=== PATIENT | male | born 1970 | race Caucasian/White ===

== ENCOUNTER → 2019-06-29 06:47 | Outpatient (CLI) | payer OTHER, SELFPAY ==
--- NOTE | 2019-06-29 06:49 | DI.ECHO.S_ITS ---
[facility] +---------+ : : [address] : [place] [address] : : : : [id number] : : : : Phone: [phone]+ Echocardiogram Report + + :Name: PHI BORRERO Study Date: 06/29/2019 Height: 73 in : :[facility] Exam Location: [place] Weight: 200 lb : : Gender: Male BSA: 2.2 m2 : :: 1970 Age: 48 yrs BP: 129/79 mmHg: :Reason For Study: Palpitations/ : :Ordering Physician: Shan Altman Performed By: Jacqueline Page : + + Interpretation Summary The left ventricle is normal in size, wall thickness, and systolic function without any focal wall motion abnormalities. The ejection fraction is estimated to be 55-60%. Diastolic parameters suggest probable normal left ventricular diastolic function and normal filling pressures. The right ventricle is mildly dilated. The right ventricular systolic function is normal. Both atria are mildly dilated. There is no significant valvular heart disease. The aortic root is normal size. Procedure: A two-dimensional transthoracic echocardiogram with color flow and Doppler was performed. The study quality was technically adequate. There is no prior echocardiogram noted for this patient. The patient was in normal sinus rhythm during the exam. The heart rate ranged between 50-63 bpm during the study. Left Ventricle: The left ventricle is normal in size, wall thickness, and systolic function without any focal wall motion abnormalities. The ejection fraction is estimated to be 55-60%. Diastolic parameters suggest probable normal left ventricular diastolic function and normal filling pressures. Right Ventricle: The right ventricle is mildly dilated. The right ventricular systolic function is normal. Atria: Both atria are mildly dilated. There is no Doppler evidence for an interatrial shunt. Mitral Valve: There is a flat closure plane of the the mitral valve leaflets. There is trace mitral regurgitation. Aortic Valve: The aortic valve is trileaflet. The aortic valve opens well. No aortic regurgitation is present. Tricuspid Valve: The tricuspid valve is normal in structure and function. There is a trace or physiologic amount of tricuspid regurgitation. The right ventricular systolic pressure is estimated to be at least 13 mmHg based on an estimated right atrial pressure of 3 mm Hg. Pulmonic Valve: The pulmonic valve is not well visualized. There is trace pulmonic regurgitation. There is no significant valvular heart disease. Great Vessels: The aortic root is normal size. The ascending aorta is normal in size. The pulmonary artery is not well visualized, but is probably normal size. Inspiratory collapse cannot be assessed because of mechanical ventilation, thus CVP cannot be estimated.. Pericardium/ Pleura There is no pericardial effusion. There is no pleural effusion. MMode/2D Measurements & Calculations LVIDd: 5.2 cm LVOT diam: 2.3 cm LVIDs: 3.6 cm Ao root diam: 3.5 cm FS: 31.0 % asc Aorta Diam: 3.1 cm EPSS: 0.28 cm IVSd: 0.84 cm LVPWd: 0.77 cm LV rome. diameter/BSA (cm/m^2): 2.4 LV sys. diameter/BSA (cm/m^2): 1.7 LA A2 area: 25.8 cm2 RA long axis: 6.1 cm LA A4 area: 23.9 cm2 RA area: 22.1 cm2 LA length (vol): 6.0 cm RA vol: 68.2 ml LA vol: 87.2 ml RA : 31.7 ml/m2 LA vol index: 40.5 ml/m2 IVC diam: 1.7 cm RVD1 (basal): 5.1 cm RVD2 (mid): 4.4 cm TAPSE: 2.1 cm Doppler Measurements & Calculations Ao V2 max: 96.9 cm/sec LVOT Max Antoine: 90.8 cm/sec Ao V2 mean: 67.8 cm/sec LV V1 max P.3 mmHg Ao max P.8 mmHg LV V1 VTI: 16.9 cm Ao mean P.1 mmHg NATALIE(I,D): 3.5 cm2 Ao V2 VTI: 19.5 cm NATALIE(V,D): 3.8 cm2 sev ratio: 0.87 NATALIE indexed to BSA (cm^2/m^2): 1.6 MV E max antoine: 58.2 cm/sec TR max antoine: 155.2 cm/sec MV A max antoine: 36.2 cm/sec TR max P.6 mmHg MV E/A: 1.6 PA V2 max: 56.9 cm/sec Med Peak E' Atnoine: 10.0 cm/sec PA V2 mean: 43.0 cm/sec E/E' med: 5.8 PA mean P.78 mmHg Lat Peak E' Antoine: 13.4 cm/sec PA Accel Time: 0.08 sec E/E' lat: 4.3 E/e' average: 5.1 MV dec time: 0.28 sec SV(LVOT): 68.8 ml Reading Physician:10:41 AM
== END ==
PROVIDERS: PCP Family Medicine; Referring Provider Family Medicine; Visit Provider Family Medicine
DX: R00.2 Palpitations (principal)
CPT/HCPCS: 93306

== ENCOUNTER → 2019-07-11 10:42 | Outpatient (CLI) | payer OTHER, SELFPAY ==
--- NOTE | 2019-08-03 07:58 | PM.CARDMON.1 ---
[employer] Report Referral & Results Date Patient Seen: 07/11/19 Requesting provider: Aurora Palma Indication: Palpitations Duration of monitoring (days): 14 Diary information: There were 27 patient triggered events and 7 diary entries The triggered events were associated with sinus rhythm, PVCs including ventricular bigeminy, PACs, and atrial tachycardia The diary events were associated with sinus rhythm, PVCs including ventricular bigeminy and PACs Data: Minimum heart rate identified was 43 beats per minute at 00:57 on 07/16/2019 Maximum heart rate was 190 beats per minute at 12:36 on 07/23/2019 Less than 1% of identified beats or either ventricular supraventricular ectopic in origin. This included runs of ventricular bigeminy and trigeminy. The longest episode of ventricular bigeminy was 6.1 seconds and the longest episode of ventricular trigeminy was 5.5 seconds 11 runs of SVT/atrial tachycardia were identified the fastest at a rate of 150 beats per minute and the longest lasting 18 beats at a rate of 114 beats per minute suggesting more likely an atrial tachycardia than true SVT Impression: Patient with both supraventricular ventricular ectopic depolarizations the likely appear to be symptomatic. No serious dysrhythmias identified on this study however. Clinical correlation suggested
== END ==
PROVIDERS: PCP Family Medicine; Visit Provider Family Medicine
DX: R00.2 Palpitations (principal)
CPT/HCPCS: 0296T; 0298T

== ENCOUNTER → 2019-09-11 07:44 | Outpatient (CLI) | payer OTHER, SELFPAY ==
[2019-09-11 08:27] LABS: Add Manual Diff / Slide Review NO; Basophils Absolute Auto 100 /uL (0-100); Basophils Percent Auto 0.9 % (0-2); Eosinophils Absolute Auto 100 /uL (0-450); Eosinophils Percent Auto 1.9 % (2-4); Hemoglobin 14.8 g/dL (13.5-17.5); Lymphocytes Absolute Auto 1500 /uL (1100-4500); Lymphocytes Percent Auto 22.9 % (25-40); Mean Corpuscular HGB Conc 34.4 % (30-36); Mean Corpuscular Hemoglobin 31.1 PG (26-34); Mean Corpuscular Volume 90.5 fL (80-100); Monocytes Absolute Auto 600 /uL (0-900); Neutrophils Absolute Auto 4400 /uL (1500-7000); Neutrophils Percent Auto 65.3 % (50-75); Platelet Count 209 X10^3/uL (150-400); Red Blood Cell Count 4.75 X10^6/uL (4.5-5.9); Red Cell Distribution Width 12.9 % (11.6-14.8); White Blood Cell Count 6.7 X10^3/uL (4.5-11.0)
[2019-09-11 08:53] LABS: Alanine Aminotransferase 30 IU/L (<50); Albumin 4.4 g/dL (3.5-5.0); Albumin Globulin Ratio 1.4 (1.0-2.8); Alkaline Phosphatase 80 U/L (38-126); Aspartate Aminotransferase 35 IU/L (17-59); BUN Creatinine Ratio 14.4 (6-22); Bilirubin Total 0.7 mg/dL (0.2-1.3); Blood Urea Nitrogen 13 mg/dL (9-20); Calcium 9.9 mg/dL (8.4-10.2); Carbon Dioxide 30 mmol/L (22-32); Chloride 103 mmol/L (98-107); Cholesterol 209 mg/dL (140-199); Estimated Glomerular Filt Rate > 60.0 mL/min (>60); Globulin 3.2 g/dL (1.7-4.1); Glucose 113 mg/dL (70-100); HDL Cholesterol 37 mg/dL (40-60); HEMOLYSIS < 15 (0-50); LDL Cholesterol Calculated 142 mg/dL (<100); Potassium 4.4 mmol/L (3.4-5.1); Sodium 141 mmol/L (137-145); Total Protein 7.6 g/dL (6.3-8.2); Triglycerides 148 mg/dL (35-150)
[2019-09-11 09:19] LABS: Prostate Specific Antigen Scrn 2.52 ng/mL (0.1-4.0)
[2019-09-11 09:41] LABS: TSH w/ Reflex to FT4 2.19 uIU/mL (0.47-4.68)
== END ==
PROVIDERS: Family Medicine; PCP Family Medicine; Visit Provider Family Medicine
DX: Z13.6 Encounter for screening for cardiovascular disorders (principal); Z12.5 Encounter for screening for malignant neoplasm of prostate; R00.2 Palpitations; R73.09 Other abnormal glucose
CPT/HCPCS: 36415; 80053; 80061; 83036; 84443; 85025; G0103

== ENCOUNTER → 2021-01-06 12:37 | Outpatient (CLI) | payer OTHER, SELFPAY ==
[2021-01-06] MEDS: COVID-19 VACC #1, MRNA(MOD) 100 MCG/0.5 ML VIAL IM (12:46)
== END ==
PROVIDERS: PCP Family Medicine; Visit Provider Internal Medicine
DX: Z23 Encounter for immunization (principal)
CPT/HCPCS: 0011A; 91301

== ENCOUNTER → 2021-02-04 12:33 | Outpatient (CLI) | payer OTHER, SELFPAY ==
[2021-02-04] MEDS: COVID-19 VACC #2, MRNA(MOD) 100 MCG/0.5 ML VIAL IM (12:44)
== END ==
PROVIDERS: PCP Family Medicine; Visit Provider Internal Medicine
DX: Z23 Encounter for immunization (principal)
CPT/HCPCS: 0012A; 91301

== ENCOUNTER → 2021-04-13 08:28 | Outpatient (CLI) | payer OTHER, SELFPAY ==
[2021-04-13 10:58] LABS: COVID19 -Nasal RAPID Negative (Negative)
== END ==
PROVIDERS: PCP Family Medicine; Visit Provider Student in an Organized Health Care Education/Training Program
DX: Z01.812 Encounter for preprocedural laboratory examination (principal); Z20.822 Contact with and (suspected) exposure to COVID-19
CPT/HCPCS: 87635

== ENCOUNTER → 2021-05-12 08:35 | Outpatient (CLI) | payer OTHER, SELFPAY ==
[2021-05-12 10:22] LABS: Alanine Aminotransferase 68 IU/L (<50); Albumin 4.2 g/dL (3.5-5.0); Albumin Globulin Ratio 1.2 (1.0-2.8); Alkaline Phosphatase 75 U/L (38-126); Aspartate Aminotransferase 63 IU/L (17-59); BUN Creatinine Ratio 11.8 (6-22); Bilirubin Total 0.9 mg/dL (0.2-1.3); Blood Urea Nitrogen 10 mg/dL (9-20); Calcium 9.7 mg/dL (8.4-10.2); Carbon Dioxide 29 mmol/L (22-32); Chloride 105 mmol/L (98-107); Cholesterol 233 mg/dL (140-199); Estimated Glomerular Filt Rate > 60.0 mL/min (>60); Globulin 3.4 g/dL (1.7-4.1); Glucose 104 mg/dL (70-100); HDL Cholesterol 40 mg/dL (40-60); HEMOLYSIS < 15 (0-50); LDL Cholesterol Calculated 157 mg/dL (<100); Potassium 4.4 mmol/L (3.4-5.1); Sodium 140 mmol/L (137-145); Total Protein 7.6 g/dL (6.3-8.2); Triglycerides 179 mg/dL (35-150)
[2021-05-12 10:44] LABS: Prostate Specific Antigen 2.26 ng/mL (0.10-4.00)
== END ==
PROVIDERS: PCP Family Medicine; Referring Provider Family Medicine; Visit Provider Family Medicine
DX: Z13.220 Encounter for screening for lipoid disorders (principal); Z13.1 Encounter for screening for diabetes mellitus; Z12.5 Encounter for screening for malignant neoplasm of prostate
CPT/HCPCS: 36415; 80053; 80061; 84153

== ENCOUNTER 2021-05-14 11:36 | Emergency (ER) | payer OTHER, SELFPAY ==
[2021-05-14 11:43] VITALS: BP 181/87; PULSE 77; O2SAT 97
[2021-05-14 11:54] VITALS: BP 181/87; PULSE 63; RESP 18; TEMP 36.8; O2SAT 97; BMI 27.0
[2021-05-14 12:00] VITALS: BP 165/89; PULSE 60; O2SAT 96
--- NOTE | 2021-05-14 12:28 | ED.GENADULT ---
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 (12/20/16) Chronic gingival disease (12/20/16) History of herpes genitalis (11/16/17) [place]ss[place] fibroma PFO (patent foramen ovale) TIA (transient ischemic attack) Tubular adenoma Surgical History H/O shoulder surgery H/O sinus surgery History of mandibular surgery Malrotation of intestine S/P ACL repair Family History Father Sudden S/P percutaneous transluminal angioplasty (ENVIRONMENTAL ENGINEERING TECHNICIAN) with stent placement PAD (peripheral artery disease) Family/Other Esophageal cancer Social History marital status: number of children: 2 education level: master's degree 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) Smoking Status: Former smoker alcohol intake: current substance use type: does not use Smoking Status: Former smoker alcohol intake frequency: a few times a week Substance Use Type: does not use Exam Initial Vital Signs Initial Vital Signs: Vital Signs Pulse Rate 77 05/14/21 11:43 Blood Pressure 181/87 H 05/14/21 11:43 Pulse Oximetry 97 05/14/21 11:43 Course Orders Ordered: ED Orders 05/14/21 12:01 EKG-12 Lead Stat 05/14/21 12:10 Complete Blood Count AUTO DIFF Stat Comprehensive Metabolic Panel Stat Lipase Stat Vital Signs Vital signs: Vital Signs - 8 hr 05/14/21 11:43 05/14/21 11:54 05/14/21 12:00 Temperature 98.3 F Pulse Rate 77 63 60 Respiratory Rate 18 Blood Pressure 181/87 H 181/87 H 165/89 H Pulse Oximetry 97 97 96 05/14/21 12:30 05/14/21 13:00 Temperature Pulse Rate 58 L 62 Respiratory Rate Blood Pressure 156/86 H 151/89 H Pulse Oximetry 97 97 Medical Decision Making Lab Data Result diagrams: 05/14/21 12:10 05/14/21 12:10 Labs: Lab Results 05/14/21 05/14/21 Range/Units 12:10 12:10 WBC 6.8 (4.5-11.0) X10^3/uL RBC 4.78 (4.5-5.9) X10^6/uL Hgb 14.6 (13.5-17.5) g/dL Hct 42.5 (41-53) % MCV 88.9 (80-100) fL MCH 30.6 (26-34) PG MCHC 34.4 (30-36) % RDW 13.0 (11.6-14.8) % Plt Count 196 (150-400) X10^3/uL Neut % (Auto) 64.0 (50-75) % Lymph % (Auto) 24.4 L (25-40) % [place] % (Auto) 9.4 (3-14) % Eos % (Auto) 1.3 L (2-4) % Baso % (Auto) 0.9 (0-2) % Neut # (Auto) 4300 (1492-7726) /uL Lymph # (Auto) 1700 (9385-9289) /uL [place] # (Auto) 600 (0-900) /uL Eos # (Auto) 100 (0-450) /uL Baso # (Auto) 100 (0-100) /uL Sodium 140 (137-145) mmol/L Potassium 4.0 (3.4-5.1) mmol/L Chloride 106 (98-107) mmol/L Carbon Dioxide 28 (22-32) mmol/L BUN 10 (9-20) mg/dL Creatinine 0.73 (0.66-1.25) mg/dL Estimated GFR > 60.0 (>60) mL/min BUN/Creatinine Ratio 13.7 (6-22) Glucose 89 (70-100) mg/dL Calcium 9.2 (8.4-10.2) mg/dL Total Bilirubin 0.5 (0.2-1.3) mg/dL AST 44 (17-59) IU/L ALT 53 H (<50) IU/L Alkaline Phosphatase 80 (38-126) U/L Total Protein 7.4 (6.3-8.2) g/dL Albumin 4.1 (3.5-5.0) g/dL Globulin 3.3 (1.7-4.1) g/dL Albumin/Globulin Ratio 1.2 (1.0-2.8) Lipase 51 (23-300) U/L Urine Dip Bedside Urine Glucose Negative Bedside Urine Bilirubin - Negative Bedside Urine Ketone - Negative Urine Specific [place] 1.025 Bedside Urine Occult Blood - Negative Bedside Urine pH 7.0 Bedside Urine Protein - Negative Bedside Urine Urobilinogen - Negative Bedside Urine Nitrite - Negative Bedside Urine Leukocytes - Negative Esterase Point of care testing: Urine Dip Bedside Urine Glucose Negative Bedside Urine Bilirubin - Negative Bedside Urine Ketone - Negative Urine Specific [place] 1.025 Bedside Urine Occult Blood - Negative Bedside Urine pH 7.0 Bedside Urine Protein - Negative Bedside Urine Urobilinogen - Negative Bedside Urine Nitrite - Negative Bedside Urine Leukocytes - Negative Esterase Discharge Plan Departure Prescriptions: No Action valacyclovir 1 gram tablet 1,000 mg PO QDAY Qty: 30 RF: 3 Referrals: Aurora Palma DO [Primary Care Provider] -
[2021-05-14 12:30] VITALS: BP 156/86; PULSE 58; O2SAT 97
[2021-05-14 12:30] LABS: Add Manual Diff / Slide Review NO; Basophils Absolute Auto 100 /uL (0-100); Basophils Percent Auto 0.9 % (0-2); Eosinophils Absolute Auto 100 /uL (0-450); Eosinophils Percent Auto 1.3 % (2-4); Hematocrit 42.5 % (41-53); Hemoglobin 14.6 g/dL (13.5-17.5); Lymphocytes Absolute Auto 1700 /uL (1100-4500); Lymphocytes Percent Auto 24.4 % (25-40); Mean Corpuscular HGB Conc 34.4 % (30-36); Mean Corpuscular Hemoglobin 30.6 PG (26-34); Mean Corpuscular Volume 88.9 fL (80-100); Monocytes Absolute Auto 600 /uL (0-900); Monocytes Percent Auto 9.4 % (3-14); Neutrophils Absolute Auto 4300 /uL (1500-7000); Platelet Count 196 X10^3/uL (150-400); Red Blood Cell Count 4.78 X10^6/uL (4.5-5.9); White Blood Cell Count 6.8 X10^3/uL (4.5-11.0)
[2021-05-14 12:47] LABS: Alanine Aminotransferase 53 IU/L (<50); Albumin 4.1 g/dL (3.5-5.0); Albumin Globulin Ratio 1.2 (1.0-2.8); Alkaline Phosphatase 80 U/L (38-126); Aspartate Aminotransferase 44 IU/L (17-59); BUN Creatinine Ratio 13.7 (6-22); Bilirubin Total 0.5 mg/dL (0.2-1.3); Blood Urea Nitrogen 10 mg/dL (9-20); Calcium 9.2 mg/dL (8.4-10.2); Carbon Dioxide 28 mmol/L (22-32); Chloride 106 mmol/L (98-107); Estimated Glomerular Filt Rate > 60.0 mL/min (>60); Globulin 3.3 g/dL (1.7-4.1); Glucose 89 mg/dL (70-100); HEMOLYSIS < 15 (0-50); Lipase 51 U/L (23-300); Sodium 140 mmol/L (137-145); Total Protein 7.4 g/dL (6.3-8.2)
[2021-05-14 13:00] VITALS: BP 151/89; PULSE 62; O2SAT 97
--- NOTE | 2021-05-14 13:03 | ED.GENADULT ---
HPI - General Adult General Chief complaint: Abdominal Pain Stated complaint: persistent abdominal pain Time Seen by Provider: 05/14/21 12:11 Source: patient Mode of arrival: Ambulatory History of Present Illness HPI narrative: 50-year-old male who is here for evaluation of left-sided abdominal discomfort. He states that is been there for the past couple days. Has been consistent. Not worse with touching. Not worse with eating or urinating or bowel movements. He has not had any changes in his bowel movements or urination. No rash over the area. No fevers. No vomiting. Has had abdominal surgeries in the past. Had a malrotation that was repaired 5 to 6 years ago. He stated that he does have a spider bite on his left lower back Related Data Previous Rx's Medication Instructions Recorded valacyclovir 1 gram tablet 1,000 mg PO QDAY #30 tab 03/23/21 valacyclovir 1 gram tablet 1,000 mg PO TID 7 Days #21 tab 05/14/21 Allergies Allergy/AdvReac Type Severity Reaction Status Date / Time meperidine [From DEMEROL] Allergy Intermediate hives Verified 12/07/19 15:38 Penicillins [PENICILLINS] Allergy Intermediate rash Verified 12/07/19 15:38 Review of Systems Constitutional Constitutional: Reports system reviewed and no additional complaints, except as documented Cardiovascular Cardiovascular: Reports system reviewed and no additional complaints, except as documented Respiratory Respiratory: Reports system reviewed and no additional complaints, except as documented Gastrointestinal Gastrointestinal: Reports as per HPI Genitourinary Genitourinary: Reports system reviewed and no additional complaints, except as documented Musculoskeletal Musculoskeletal: Reports system reviewed and no additional complaints, except as documented Integumentary/Breasts Skin/Breast: Reports as per HPI Neurologic Neurologic: Reports system reviewed and no additional complaints, except as documented Hematologic/Lymphatic On Anticoagulants: No Allergic/Immunologic Allergic/Immunologic: Reports system reviewed and no additional complaints, except as documented Patient History Medical History 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 (12/20/16) Chronic gingival disease (12/20/16) History of herpes genitalis (11/16/17) [place]ss[place] fibroma PFO (patent foramen ovale) TIA (transient ischemic attack) Tubular adenoma Surgical History H/O shoulder surgery H/O sinus surgery History of mandibular surgery Malrotation of intestine S/P ACL repair Family History Father Sudden S/P percutaneous transluminal angioplasty (FRUIT I FARMWORKER) with stent placement PAD (peripheral artery disease) Family/Other Esophageal cancer Social History marital status: number of children: 2 education level: master's degree 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) Smoking Status: Former smoker alcohol intake: current substance use type: does not use Smoking Status: Former smoker alcohol intake frequency: a few times a week Substance Use Type: does not use Exam Initial Vital Signs Initial Vital Signs: Vital Signs Pulse Rate 77 05/14/21 11:43 Blood Pressure 181/87 H 05/14/21 11:43 Pulse Oximetry 97 05/14/21 11:43 Const General: cooperative and healthy appearing HENMT Head: normal to inspection and normocephalic Eyes General: appearance normal, both eyes and all related structures Resp Effort & Inspection: normal respiratory effort Cardio Rate: regular rate GI Inspection: normal to inspection Palpation: soft, No firm and No tender Back/Spine/Pelvis Back: No CVA tenderness Skin Other: Patient does have a rash on his left flank. It is grouped vesicles with a small amount of erythema around the area. Neuro General: patient alert and patient awake Extrem General: capillary refill normal Psych Appearance: grossly normal and well kempt Course Orders Ordered: ED Orders 05/14/21 12:01 EKG-12 Lead Stat 05/14/21 12:10 Complete Blood Count AUTO DIFF Stat Comprehensive Metabolic Panel Stat Lipase Stat Vital Signs Vital signs: Vital Signs - 8 hr 05/14/21 11:43 05/14/21 11:54 05/14/21 12:00 Temperature 98.3 F Pulse Rate 77 63 60 Respiratory Rate 18 Blood Pressure 181/87 H 181/87 H 165/89 H Pulse Oximetry 97 97 96 05/14/21 12:30 05/14/21 13:00 05/14/21 13:53 Temperature Pulse Rate 58 L 62 66 Respiratory Rate 18 Blood Pressure 156/86 H 151/89 H 172/91 H Pulse Oximetry 97 97 99 Medical Decision Making Lab Data Lab results reviewed: Yes I reviewed the patient's lab results. Result diagrams: 05/14/21 12:10 05/14/21 12:10 Labs: Lab Results 05/14/21 05/14/21 Range/Units 12:10 12:10 WBC 6.8 (4.5-11.0) X10^3/uL RBC 4.78 (4.5-5.9) X10^6/uL Hgb 14.6 (13.5-17.5) g/dL Hct 42.5 (41-53) % MCV 88.9 (80-100) fL MCH 30.6 (26-34) PG MCHC 34.4 (30-36) % RDW 13.0 (11.6-14.8) % Plt Count 196 (150-400) X10^3/uL Neut % (Auto) 64.0 (50-75) % Lymph % (Auto) 24.4 L (25-40) % [place] % (Auto) 9.4 (3-14) % Eos % (Auto) 1.3 L (2-4) % Baso % (Auto) 0.9 (0-2) % Neut # (Auto) 4300 (9572-4200) /uL Lymph # (Auto) 1700 (5217-9421) /uL [place] # (Auto) 600 (0-900) /uL Eos # (Auto) 100 (0-450) /uL Baso # (Auto) 100 (0-100) /uL Sodium 140 (137-145) mmol/L Potassium 4.0 (3.4-5.1) mmol/L Chloride 106 (98-107) mmol/L Carbon Dioxide 28 (22-32) mmol/L BUN 10 (9-20) mg/dL Creatinine 0.73 (0.66-1.25) mg/dL Estimated GFR > 60.0 (>60) mL/min BUN/Creatinine Ratio 13.7 (6-22) Glucose 89 (70-100) mg/dL Calcium 9.2 (8.4-10.2) mg/dL Total Bilirubin 0.5 (0.2-1.3) mg/dL AST 44 (17-59) IU/L ALT 53 H (<50) IU/L Alkaline Phosphatase 80 (38-126) U/L Total Protein 7.4 (6.3-8.2) g/dL Albumin 4.1 (3.5-5.0) g/dL Globulin 3.3 (1.7-4.1) g/dL Albumin/Globulin Ratio 1.2 (1.0-2.8) Lipase 51 (23-300) U/L Urine Dip Bedside Urine Glucose Negative Bedside Urine Bilirubin - Negative Bedside Urine Ketone - Negative Urine Specific [place] 1.025 Bedside Urine Occult Blood - Negative Bedside Urine pH 7.0 Bedside Urine Protein - Negative Bedside Urine Urobilinogen - Negative Bedside Urine Nitrite - Negative Bedside Urine Leukocytes - Negative Esterase Point of care testing: Urine Dip Bedside Urine Glucose Negative Bedside Urine Bilirubin - Negative Bedside Urine Ketone - Negative Urine Specific [place] 1.025 Bedside Urine Occult Blood - Negative Bedside Urine pH 7.0 Bedside Urine Protein - Negative Bedside Urine Urobilinogen - Negative Bedside Urine Nitrite - Negative Bedside Urine Leukocytes - Negative Esterase ECG Data Attestation: I personally reviewed and interpreted this ECG as follows: Interpretation: Sinus bradycardia Ventricular rate of 56 Normal axis Normal QRS Normal QTC No ST T wave changes MDM Narrative Medical decision making narrative: Patient is a 50-year-old male with left-sided abdominal tenderness that is not worse with palpation, eating, urinating, bowel movements. There is no rash over the area where he is having discomfort however he rash that is in the same dermatome as where he is having discomfort does have findings that are very consistent with shingles. Patient's thinks that this was a spider bite however does not appear to be cellulitis. There is no abscess in the area. There are clumped vesicles in the area. Patient has had chickenpox in the past. Has also had genital herpes. I have low suspicion for surgical intra-abdominal who issues. I feel that we can hold on any radiologic studies for now given his presentation. We will place him on valacyclovir. He was given return precautions and follow-up instructions. He expressed understanding and agreement. Discharge Plan Departure Patient Disposition: Home Clinical Impression: Shingles, Abdominal pain Instructions: DI for Shingles Activity Restrictions/Additional Instructions: The rash on your left flank is very consistent with shingles. We do need to start you on an antiviral medication. This was electronically transmitted to [facility]. Return to the emergency department for any new or worsening symptoms Prescriptions: New valacyclovir 1 gram tablet 1,000 mg PO TID 7 Days Qty: 21 RF: 0 No Action valacyclovir 1 gram tablet 1,000 mg PO QDAY Qty: 30 RF: 3 Referrals: Aurora Palma DO [Primary Care Provider] -
[2021-05-14 13:53] VITALS: BP 172/91; PULSE 66; RESP 18; O2SAT 99
== END 2021-05-14 13:54 | disposition home or self-care (01) ==
PROVIDERS: Emergency Provider Emergency Medicine; PCP Family Medicine
DX: B02.9 Zoster without complications (principal); R10.9 Unspecified abdominal pain
CPT/HCPCS: 36415; 80053; 81003; 83690; 85025; 93005; 93010; 99283; 99284

== ENCOUNTER → 2023-04-21 11:11 | Outpatient (CLI) | payer OTHER, SELFPAY ==
--- NOTE | 2023-04-21 11:13 | DI.RAD.S_ITS ---
PROCEDURE: XR KNEE RT 3V INDICATIONS: Right knee pain x 3 weeks TECHNIQUE: 3 views of the knee were acquired. COMPARISON: None. FINDINGS: Bones: No fractures or dislocations. No suspicious bony lesions. Left ACL repair. Moderate medial lateral compartmental joint space narrowing and superior patellar enthesophyte Soft tissues: No joint effusion. No suspicious soft tissue calcifications. IMPRESSION: Moderate medial and lateral compartmental joint space narrowing Approved by: Tee Shabazz M.D. on 04/21/2023 at 21:21
--- NOTE | 2023-04-21 11:13 | DI.RAD.S_ITS ---
PROCEDURE: XR LUMBAR SPINE 2-3V INDICATIONS: LBP w/weakness R thigh and patellar hyperreflexia TECHNIQUE: 3 views of the lumbar spine were acquired. COMPARISON: None. FINDINGS: Bones: 5 [id number] vertebrae are present. There is normal bony alignment. No vertebral body compression fractures. No suspicious bony lesions. Lower lumbar spine disc space narrowing with hypertrophic facet joints Soft tissues: Overlying bowel gas pattern is normal. No suspicious soft tissue calcifications. Surgical clips noted anterior to the L5 vertebral body IMPRESSION: Mild degenerative disc disease and arthropathy in the lower lumbar spine Approved by: Tee Shabazz M.D. on 04/21/2023 at 21:24
== END ==
PROVIDERS: PCP Family Medicine; Referring Provider Physician Assistant; Visit Provider Physician Assistant
DX: M47.26 Other spondylosis with radiculopathy, lumbar region (principal); M51.16 Intervertebral disc disorders with radiculopathy, lumbar region; M25.561 Pain in right knee
CPT/HCPCS: 72100; 73562

== ENCOUNTER 2025-01-23 13:45 | Outpatient (RCR) | payer OTHER, SELFPAY ==
--- NOTE | 2024-11-13 17:15 | PT.OIE ---
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 (12/20/16) Chronic gingival disease (12/20/16) History of herpes genitalis (11/16/17) [place]ss[place] fibroma PFO (patent foramen ovale) TIA (transient ischemic attack) Tubular adenoma Past Surgical History (Last Reviewed 11/02/22 @ 16:40 by Yoana Lawson PA-C) H/O shoulder surgery H/O sinus surgery History of mandibular surgery Malrotation of intestine S/P ACL repair Visit Care Team Role Provider Type Sienna Crow MD Attending Provider Physician Family Provider Primary Care Provider Referring Provider Specialty: Family Practice 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 ESTIMATOR Address: [address] [place] [address], [facility] Fax: Email: [email or web address] Physical Therapy Initial Evaluation PT-OP-A Visit Information Start: 11/01/24 16:34 Freq: Status: Active Protocol: Document 11/13/24 13:29 [facility] (Rec: 11/13/24 14:36 [facility] [id number]) Out-Patient Physical Therapy Visit Information Visit Information Visit Type Initial Evaluation Visit Start Time 13:55 Visit Stop Time 14:35 Visit Number 1 Number of BUSINESS DEAN Visits 0 PT-OP-B Current Condition Start: 11/01/24 16:34 Freq: Status: Active Protocol: Document 11/13/24 13:29 [facility] (Rec: 11/13/24 14:36 [facility] [id number]) Current Condition History of Current Condition Onset Date summer 2023 Current Complaints back pain, R knee pain History of Current Condition Pt reports mid summer last year was trying to get back to running the trail. Going down hill, had pain in R knee. Has seen various doctors and they think it may be spine related . Also noticed, sometimes when spine is in certain positions , gets the R knee pain. Does feel back being off. Notes back ache. When it feels right , can do leg ext and when it is off, can't lift as much weight in knee. Prior to last summer, has had back aches here and there but last summer was the first time it started . Still running, mostly on treadmill without incline. Runs about 1 to 2 miles at a time. Feels it when going up/ down stairs. 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 Had also a benign growth in R lat lower leg karma they removed. hx of malrotated intestine sx 5 -6 years ago d/ t strange abdominal pain which fixed pain. has HTN and takes BP meds. Had surgery to loosen tendons on R foot in his 30s but toes on R still struggle ot be fully relaxed. Used ot run 5ks before this injury. Has been going to the gym but isn't feeling like he is progressing. Hx of L knee ACL repair. DId have hx of injury to R knee too but was told didn't need sx. Knee exercises always worked in the past though Prior Treatments and Tests Did PT last year for back pain -helped a little Treatment Goals Patient/Caregiver Goals Get back stronger so more stable, be able to run hills, stairs and be able to get up/ down from squat/ground PT-OP-C Subjective Start: 11/01/24 16:34 Freq: Status: Active Protocol: Document 11/13/24 13:29 [facility] (Rec: 11/13/24 14:36 [facility] [id number]) Patient Questionnaires Lower Extremity Functional Scale LEFS Score 73 Oswestry Low Back Index Oswestry Score 4/50 OP-PT Pain Assessment Location R knee Pain Location Details ant Frequency Intermittent Radiating Location back will feel off Variations/Patterns pain R buttocks Pain Aggravating Factors Stair Climbing Other Pain Aggravating Factors steep downhill, leg ext, up/ down from ground Other Pain Alleviating Factors stretch back or get it to pop PT-OP-D Balance Start: 11/01/24 16:34 Freq: Status: Active Protocol: Document 11/13/24 13:29 [facility] (Rec: 11/13/24 14:36 [facility] [id number]) Balance Tests Single Limb Standing Single Limb- Right >30 sec w/opp hip drop and deviation Single Limb- Left >30 sec PT-OP-G Mobility & Gait Start: 11/01/24 16:34 Freq: Status: Active Protocol: Document 11/13/24 13:29 [facility] (Rec: 11/13/24 14:36 [facility] [id number]) OP Gait Assessment Comments Gait Comments walk: opp hip drop w/RLE WB, dec push off and stance time run: opp hip drop w/RLE WB, dec push off and stance time, IR of R femur PT-OP-J Posture/Palpation/Skin Start: 11/01/24 16:34 Freq: Status: Active Protocol: Document 11/13/24 13:29 [facility] (Rec[facility] 11/13/24 14:36 [id number] Posture Evaluation Krzysztof Postural Classification System Krzysztof Postural Classifications Posterior/Anterior Lumbar Protective Mechanism Left AP 0 Lumbar Protective Mechanism Right AP 0 Lumbar Protective Mechanism Left PA 2 Lumbar Protective Mechanism Right PA 0 Comments Posture Comments L foot pronation, R foot supination, genu recurvatum, IR of R femur and ER tibia, L PSIS post, R iliac crest higher, equal greater trochanters, inc kyphosis PT-OP-K Range of Motion Start: 11/01/24 16:34 Freq: Status: Active Protocol: Document 11/13/24 13:29 [facility] (Rec: 11/13/24 14:36 [facility] [id number]) Lumbar Spine Range of Motion Lumbar Spine Active Percentage Flexion 80 Extension 75 Rotation Left 70 Rotation Right 80 Lateral Flexion Left 70 Lateral Flexion Right 80 Comments no pain, just feels tight at end ranges PT-OP-L Special Tests Start: 11/01/24 16:34 Freq: Status: Active Protocol: Document 11/13/24 13:29 [facility] (Rec: 11/13/24 14:36 [facility] [id number]) Special Tests Lumbar Spine Special Tests Straight Leg Raise Test Results 59 deg R, 60 L Slump Test Results neg Other Special Tests Special Tests reflexes PT-OP-M Strength Start: 11/01/24 16:34 Freq: Status: Active Protocol: Document 11/13/24 13:29 [facility] (Rec: 11/13/24 14:36 [facility] [id number]) Hip Strength Hip Manual Muscle Testing Right Flexion (L2) 5 Normal Extension (S1) 4- Good- Abduction 4 Good Adduction 4+ Good+ External Rotation 4+ Good+ Internal Rotation 5 Normal Left Flexion (L2) 5 Normal Extension (S1) 4+ Good+ Abduction 4+ Good+ Adduction 5 Normal External Rotation 5 Normal Internal Rotation 5 Normal Knee Strength Knee Manual Muscle Testing Right Flexion (S2) 5 Normal Extension (L3) 5 Normal Left Flexion (S2) 5 Normal Extension (L3) 5 Normal Ankle/Foot Strength Ankle and Foot Manual Muscle Testing Left Dorsiflexion (L4) 5 Normal Plantarflexion (S1) 5 Normal Inversion 5 Normal Eversion (S1) 5 Normal Comments 20 heel raises Right Dorsiflexion (L4) 5 Normal Plantarflexion (S1) 4 Good Inversion 5 Normal Eversion (S1) 5 Normal Comments starts to bend knee a little after about 10 but does do 20 PT-OP-T Assessment and Plan Start: 11/01/24 16:34 Freq: Status: Active Protocol: Document 11/13/24 13:29 [facility] (Rec: 11/13/24 14:36 [facility] [id number]) Physical Therapy Assessment Rehab Potential Rehabilitation Potential Good Evaluation Complexity Number of Personal Factors/Comorbidities 3 or More Number of Body Systems Impaired 4 or More Clinical Presentation at Evaluation Evolving Impairments Impairments Activity Tolerance,Balance, Functional Activities, Functional Mobility,Gait,Pain, Posture,ROM,Soft Tissue Mobility,Strength Goals squat Short Term Goal (STG) Pt will be able to do full DL squat w/o pain w/o cues and good form STG Duration 12/13 Alf Goal (LTG) Pt will be narayan to squat down to ground and get up/down from the ground w/o inc pain or difficulty LTG Duration 01/22 activity Short Term Goal (STG) Pt will be able to do go up/ down stairs w/o inc knee pain STG Duration 12/18 Car Seat Maker Goal (LTG) Pt will be able to run hills and at least 3 miles w/o inc pain in knee or back LTG Duration 01/22/25 strength Short Term Goal (STG) Pt will be indep w/HEP STG Duration 12/13 Car Seat Maker Goal (LTG) Pt will score 5/5 BLE MMT and at least 3/5 LPM to show improved stability to allow for easier mobility. LTG Duration 01/22/25 Assessment Summary Assessment Pt presents with R knee pain that started last summer when running downhill. With further assessment, he has found that it appears to be related to when his lumbar spine feels off. He does have positive SLR B and have innominate dysfunction likely related to his pain along w/R glute weakness. He has dec core strength that likely is related to this also. he would benefit from skilled PT to work on dysfunctional movement and dec pain Physical Therapy Plan Frequency and Duration Frequency of Treatment 2x/Week Duration of treatment (weeks) 10 Plan of Care Start Date 11/13/24 Plan of Care End Date 01/22/25 Therapeutic Interventions Therapeutic Interventions Balance Training,Gait Training ,Home Exercise Program,Joint Mobilizations,Manual Therapy, Neuromuscular Re-education, Orthotic/Prosthetic Management ,Patient/Caregiver Education, Self-Care/Home Management,Soft Tissue Mobilization,Taping, Therapeutic Activities, Therapeutic Exercises Modalities Cold Pack/Ice Massage,Electric Stimulation,Hot Packs, Infrared Therapy,Traction- Mechanical,Ultrasound Next Visit Focus/Plan Next Note Type Treatment Note Next Visit Plan squat and lunge training, gait at wall, bridge /november, sidesteps, plank manual to pelvis and hip mobility, look at lumbar especially around L3, L4
--- NOTE | 2024-11-13 17:15 | PT.OPPOC ---
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 Going down hill, had pain in R knee. Has seen various doctors and they think it may be spine related . Also noticed, sometimes when spine is in certain positions , gets the R knee pain. Does feel back being off. Notes back ache. When it feels right , can do leg ext and when it is off, can't lift as much weight in knee. Prior to last summer, has had back aches here and there but last summer was the first time it started . Still running, mostly on treadmill without incline. Runs about 1 to 2 miles at a time. Feels it when going up/ down stairs. 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 Had also a benign growth in R lat lower leg karma they removed. hx of malrotated intestine sx 5 -6 years ago d/ t strange abdominal pain which fixed pain. has HTN and takes BP meds. Had surgery to loosen tendons on R foot in his 30s but toes on R still struggle ot be fully relaxed. Used ot run 5ks before this injury. Has been going to the gym but isn't feeling like he is progressing. Hx of L knee ACL repair. DId have hx of injury to R knee too but was told didn't need sx. Knee exercises always worked in the past though Prior Treatments and Tests Did PT last year for back pain -helped a little Treatment Goals Patient/Caregiver Goals Get back stronger so more stable, be able to run hills, stairs and be able to get up/ down from squat/ground PT-OP-T Assessment and Plan Start: 11/01/24 16:34 Freq: Status: Active Protocol: Document 11/13/24 13:29 [facility] (Rec: 11/13/24 14:36 [facility] [id number]) Physical Therapy Assessment Rehab Potential Rehabilitation Potential Good Evaluation Complexity Number of Personal Factors/Comorbidities 3 or More Number of Body Systems Impaired 4 or More Clinical Presentation at Evaluation Evolving Impairments Impairments Activity Tolerance,Balance, Functional Activities, Functional Mobility,Gait,Pain, Posture,ROM,Soft Tissue Mobility,Strength Goals squat Short Term Goal (STG) Pt will be able to do full DL squat w/o pain w/o cues and good form STG Duration 12/13 Merchandising Consultant Goal (LTG) Pt will be narayan to squat down to ground and get up/down from the ground w/o inc pain or difficulty LTG Duration 01/22 activity Short Term Goal (STG) Pt will be able to do go up/ down stairs w/o inc knee pain STG Duration 12/18 Group Home Goal (LTG) Pt will be able to run hills and at least 3 miles w/o inc pain in knee or back LTG Duration 01/22/25 strength Short Term Goal (STG) Pt will be indep w/HEP STG Duration 12/13 Merchandising Consultant Goal (LTG) Pt will score 5/5 BLE MMT and at least 3/5 LPM to show improved stability to allow for easier mobility. LTG Duration 01/22/25 Assessment Summary Assessment Pt presents with R knee pain that started last summer when running downhill. With further assessment, he has found that it appears to be related to when his lumbar spine feels off. He does have positive SLR B and have innominate dysfunction likely related to his pain along w/R glute weakness. He has dec core strength that likely is related to this also. he would benefit from skilled PT to work on dysfunctional movement and dec pain Physical Therapy Plan Frequency and Duration Frequency of Treatment 2x/Week Duration of treatment (weeks) 10 Plan of Care Start Date 11/13/24 Plan of Care End Date 01/22/25 Therapeutic Interventions Therapeutic Interventions Balance Training,Gait Training ,Home Exercise Program,Joint Mobilizations,Manual Therapy, Neuromuscular Re-education, Orthotic/Prosthetic Management ,Patient/Caregiver Education, Self-Care/Home Management,Soft Tissue Mobilization,Taping, Therapeutic Activities, Therapeutic Exercises Modalities Cold Pack/Ice Massage,Electric Stimulation,Hot Packs, Infrared Therapy,Traction- Mechanical,Ultrasound Next Visit Focus/Plan Next Note Type Treatment Note Next Visit Plan squat and lunge training, gait at wall, bridge /november, sidesteps, plank manual to pelvis and hip mobility, look at lumbar especially around L3, L4 Plan of Care Dates Plan of Care Start Date 11/13/24 Plan of Care End Date 01/22/25 Electronically Signed by: Tatum Hill, PT 11/14/24 0815 If you are in agreement with this Plan of Care, please return a signed and dated copy. I have reviewed this Plan of Care and certify that the skilled therapy services above are required to meet the patient?s needs. Physician Signature Date Printed Name and Credentials Clinical Instructor Signature Printed Name and Credentials
--- NOTE | 2024-11-15 16:35 | PT.OTN ---
Current Diagnoses Radiculopathy, lumbar region (11/15/24) Physical Therapy Treatment Note PT-OP-A Visit Information Start: 11/01/24 16:34 Freq: Status: Active Protocol: Document 11/15/24 14:16 [facility] (Rec: 11/15/24 16:35 [facility] [id number]) Out-Patient Physical Therapy Visit Information Visit Information Visit Type Treatment Note Visit Start Time 13:48 Visit Stop Time 14:28 Visit Number 2 Number of FACILITY SERVICE MANAGER Visits 0 PT-OP-B Current Condition Start: 11/01/24 16:34 Freq: Status: Active Protocol: Document 11/13/24 13:29 [facility] (Rec: 11/13/24 14:36 [facility] [id number]) Current Condition History of Current Condition Onset Date summer 2023 Current Complaints back pain, R knee pain History of Current Condition Pt reports mid summer last year was trying to get back to running the trail. Going down hill, had pain in R knee. Has seen various doctors and they think it may be spine related . Also noticed, sometimes when spine is in certain positions , gets the R knee pain. Does feel back being off. Notes back ache. When it feels right , can do leg ext and when it is off, can't lift as much weight in knee. Prior to last summer, has had back aches here and there but last summer was the first time it started . Still running, mostly on treadmill without incline. Runs about 1 to 2 miles at a time. Feels it when going up/ down stairs. 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 Had also a benign growth in R lat lower leg karma they removed. hx of malrotated intestine sx 5 -6 years ago d/ t strange abdominal pain which fixed pain. has HTN and takes BP meds. Had surgery to loosen tendons on R foot in his 30s but toes on R still struggle ot be fully relaxed. Used ot run 5ks before this injury. Has been going to the gym but isn't feeling like he is progressing. Hx of L knee ACL repair. DId have hx of injury to R knee too but was told didn't need sx. Knee exercises always worked in the past though Prior Treatments and Tests Did PT last year for back pain -helped a little Treatment Goals Patient/Caregiver Goals Get back stronger so more stable, be able to run hills, stairs and be able to get up/ down from squat/ground PT-OP-C Subjective Start: 11/01/24 16:34 Freq: Status: Active Protocol: Document 11/15/24 14:16 [facility] (Rec: 11/15/24 16:35 [facility] [id number]) OP-PT Subjective Patient Comments Patient Comments Pt reports he thinks sitting at his desk doesn't help PT-OP-D Balance Start: 11/01/24 16:34 Freq: Status: Active Protocol: Document 11/13/24 13:29 [facility] (Rec: 11/13/24 14:36 [facility] [id number]) Balance Tests Single Limb Standing Single Limb- Right >30 sec w/opp hip drop and deviation Single Limb- Left >30 sec PT-OP-G Mobility & Gait Start: 11/01/24 16:34 Freq: Status: Active Protocol: Document 11/13/24 13:29 [facility] (Rec: 11/13/24 14:36 [facility] [id number]) OP Gait Assessment Comments Gait Comments walk: opp hip drop w/RLE WB, dec push off and stance time run: opp hip drop w/RLE WB, dec push off and stance time, IR of R femur PT-OP-J Posture/Palpation/Skin Start: 11/01/24 16:34 Freq: Status: Active Protocol: Document 11/13/24 13:29 [facility] (Rec: 11/13/24 14:36 [facility] [id number]) Posture Evaluation Krzysztof Postural Classification System Krzysztof Postural Classifications Posterior/Anterior Lumbar Protective Mechanism Left AP 0 Lumbar Protective Mechanism Right AP 0 Lumbar Protective Mechanism Left PA 2 Lumbar Protective Mechanism Right PA 0 Comments Posture Comments L foot pronation, R foot supination, genu recurvatum, IR of R femur and ER tibia, L PSIS post, R iliac crest higher, equal greater trochanters, inc kyphosis PT-OP-K Range of Motion Start: 11/01/24 16:34 Freq: Status: Active Protocol: Document 11/13/24 13:29 [facility] (Rec: 11/13/24 14:36 [facility] [id number]) Lumbar Spine Range of Motion Lumbar Spine Active Percentage Flexion 80 Extension 75 Rotation Left 70 Rotation Right 80 Lateral Flexion Left 70 Lateral Flexion Right 80 Comments no pain, just feels tight at end ranges PT-OP-L Special Tests Start: 11/01/24 16:34 Freq: Status: Active Protocol: Document 11/13/24 13:29 [facility] (Rec: 11/13/24 14:36 [facility] [id number]) Special Tests Lumbar Spine Special Tests Straight Leg Raise Test Results 59 deg R, 60 L Slump Test Results neg Other Special Tests Special Tests reflexes PT-OP-M Strength Start: 11/01/24 16:34 Freq: Status: Active Protocol: Document 11/13/24 13:29 [facility] (Rec: 11/13/24 14:36 [facility] [id number]) Hip Strength Hip Manual Muscle Testing Right Flexion (L2) 5 Normal Extension (S1) 4- Good- Abduction 4 Good Adduction 4+ Good+ External Rotation 4+ Good+ Internal Rotation 5 Normal Left Flexion (L2) 5 Normal Extension (S1) 4+ Good+ Abduction 4+ Good+ Adduction 5 Normal External Rotation 5 Normal Internal Rotation 5 Normal Knee Strength Knee Manual Muscle Testing Right Flexion (S2) 5 Normal Extension (L3) 5 Normal Left Flexion (S2) 5 Normal Extension (L3) 5 Normal Ankle/Foot Strength Ankle and Foot Manual Muscle Testing Left Dorsiflexion (L4) 5 Normal Plantarflexion (S1) 5 Normal Inversion 5 Normal Eversion (S1) 5 Normal Comments 20 heel raises Right Dorsiflexion (L4) 5 Normal Plantarflexion (S1) 4 Good Inversion 5 Normal Eversion (S1) 5 Normal Comments starts to bend knee a little after about 10 but does do 20 PT-OP-Q Treatments Start: 11/01/24 16:34 Freq: Status: Active Protocol: Document 11/15/24 14:16 [facility] (Rec: 11/15/24 16:35 [facility] [id number]) Therapeutic Exercises Supine Exercises core Supine Exercise Name DL isometric flex Side bilateral Reps/Minutes 30 sec bridge Supine Exercise Name SL Side bilateral Reps/Minutes 10 Standing Exercises stretch Standing Exercise Name DL calf step Side bilateral Reps/Minutes 1 min step down Standing Exercise Name lat Side bilateral Reps/Minutes 10 ea Comments cues control and knee tracking R squat Standing Exercise Name Dl Side bilateral Reps/Minutes 10 sidesteps Side bilateral Equipment Used L2 Reps/Minutes 20ft ea Comments cues posture Manual Therapy Treatment Consent Patient gave verbal consent for manual Yes treatment Soft Tissue Mobilization lumbar Body Location scars & ES R>L Mobilization Type Myofascial Release,Rolling Body Position Prone hip Body Location R glutes/piriformis Mobilization Type Sustained Pressure Intensity/Depth Moderate Body Position Prone Comments w/rot Joint Mobilizations innominate Joint R caudal, R ER c/r hip Comments on axis ER c/r prone;R inf glide PT-OP-T Assessment and Plan Start: 11/01/24 16:34 Freq: Status: Active Protocol: Document 11/15/24 14:16 [facility] (Rec: 11/15/24 16:35 [facility] [id number]) Physical Therapy Assessment Goals squat Short Term Goal (STG) Pt will be able to do full DL squat w/o pain w/o cues and good form STG Duration 12/13 Deckhand Goal (LTG) Pt will be narayan to squat down to ground and get up/down from the ground w/o inc pain or difficulty LTG Duration 01/22 activity Short Term Goal (STG) Pt will be able to do go up/ down stairs w/o inc knee pain STG Duration 12/18 Intermediate Goal (LTG) Pt will be able to run hills and at least 3 miles w/o inc pain in knee or back LTG Duration 01/22/25 strength Short Term Goal (STG) Pt will be indep w/HEP STG Duration 12/13 Intermediate Goal (LTG) Pt will score 5/5 BLE MMT and at least 3/5 LPM to show improved stability to allow for easier mobility. LTG Duration 01/22/25 Assessment Summary Assessment Pt did well with new exercises but did have more difficulty R>L LE. Improved pelvis position w/manual. Pt informed of mole of white/brown color to monitor on back Physical Therapy Plan Frequency and Duration Frequency of Treatment 2x/Week Duration of treatment (weeks) 10 Plan of Care Start Date 11/13/24 Plan of Care End Date 01/22/25 Next Visit Focus/Plan Next Note Type Treatment Note Next Visit Plan review exercises, add flexibility exercises like downdog, cat/cow, open book manual to pelvis and hip and lumbar especially L3 and 4
--- NOTE | 2024-11-20 16:32 | PT.OTN ---
Current Diagnoses Radiculopathy, lumbar region (11/20/24) Physical Therapy Treatment Note PT-OP-A Visit Information Start: 11/01/24 16:34 Freq: Status: Active Protocol: Document 11/20/24 12:27 AB (Rec: 11/20/24 16:32 AB [id number]) Out-Patient Physical Therapy Visit Information Visit Information Visit Type Treatment Note Visit Note Janine Visit Start Time 13:53 Visit Stop Time 14:35 Visit Number 3 Number of LEGISLATIVE ADVOCATE Visits 1 PT-OP-B Current Condition Start: 11/01/24 16:34 Freq: Status: Active Protocol: Document 11/13/24 13:29 LR (Rec: 11/13/24 14:36 LR [id number]) Current Condition History of Current Condition Onset Date summer 2023 Current Complaints back pain, R knee pain History of Current Condition Pt reports mid summer last year was trying to get back to running the trail. Going down hill, had pain in R knee. Has seen various doctors and they think it may be spine related . Also noticed, sometimes when spine is in certain positions , gets the R knee pain. Does feel back being off. Notes back ache. When it feels right , can do leg ext and when it is off, can't lift as much weight in knee. Prior to last summer, has had back aches here and there but last summer was the first time it started . Still running, mostly on treadmill without incline. Runs about 1 to 2 miles at a time. Feels it when going up/ down stairs. 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 Had also a benign growth in R lat lower leg karma they removed. hx of malrotated intestine sx 5 -6 years ago d/ t strange abdominal pain which fixed pain. has HTN and takes BP meds. Had surgery to loosen tendons on R foot in his 30s but toes on R still struggle ot be fully relaxed. Used ot run 5ks before this injury. Has been going to the gym but isn't feeling like he is progressing. Hx of L knee ACL repair. DId have hx of injury to R knee too but was told didn't need sx. Knee exercises always worked in the past though Prior Treatments and Tests Did PT last year for back pain -helped a little Treatment Goals Patient/Caregiver Goals Get back stronger so more stable, be able to run hills, stairs and be able to get up/ down from squat/ground PT-OP-C Subjective Start: 11/01/24 16:34 Freq: Status: Active Protocol: Document 11/20/24 12:27 AB (Rec: 11/20/24 16:32 AB [id number]) OP-PT Subjective Patient Comments Patient Comments Patient reports he is maybe a tiny bit better. Patient reports he felt he had better use of knee. Patient rated right knee pain 10/05 start of session. PT-OP-D Balance Start: 11/01/24 16:34 Freq: Status: Active Protocol: Document 11/13/24 13:29 [facility] (Rec: 11/13/24 14:36 [facility] [id number]) Balance Tests Single Limb Standing Single Limb- Right >30 sec w/opp hip drop and deviation Single Limb- Left >30 sec PT-OP-G Mobility & Gait Start: 11/01/24 16:34 Freq: Status: Active Protocol: Document 11/13/24 13:29 [facility] (Rec: 11/13/24 14:36 [facility] [id number]) OP Gait Assessment Comments Gait Comments walk: opp hip drop w/RLE WB, dec push off and stance time run: opp hip drop w/RLE WB, dec push off and stance time, IR of R femur PT-OP-J Posture/Palpation/Skin Start: 11/01/24 16:34 Freq: Status: Active Protocol: Document 11/13/24 13:29 [facility] (Rec: 11/13/24 14:36 [facility] [id number]) Posture Evaluation Krzysztof Postural Classification System Krzysztof Postural Classifications Posterior/Anterior Lumbar Protective Mechanism Left AP 0 Lumbar Protective Mechanism Right AP 0 Lumbar Protective Mechanism Left PA 2 Lumbar Protective Mechanism Right PA 0 Comments Posture Comments L foot pronation, R foot supination, genu recurvatum, IR of R femur and ER tibia, L PSIS post, R iliac crest higher, equal greater trochanters, inc kyphosis PT-OP-K Range of Motion Start: 11/01/24 16:34 Freq: Status: Active Protocol: Document 11/13/24 13:29 [facility] (Rec: 11/13/24 14:36 [facility] [id number]) Lumbar Spine Range of Motion Lumbar Spine Active Percentage Flexion 80 Extension 75 Rotation Left 70 Rotation Right 80 Lateral Flexion Left 70 Lateral Flexion Right 80 Comments no pain, just feels tight at end ranges PT-OP-L Special Tests Start: 11/01/24 16:34 Freq: Status: Active Protocol: Document 11/13/24 13:29 [facility] (Rec: 11/13/24 14:36 [facility] [id number]) Special Tests Lumbar Spine Special Tests Straight Leg Raise Test Results 59 deg R, 60 L Slump Test Results neg Other Special Tests Special Tests reflexes PT-OP-M Strength Start: 11/01/24 16:34 Freq: Status: Active Protocol: Document 11/13/24 13:29 [facility] (Rec: 11/13/24 14:36 [facility] [id number]) Hip Strength Hip Manual Muscle Testing Right Flexion (L2) 5 Normal Extension (S1) 4- Good- Abduction 4 Good Adduction 4+ Good+ External Rotation 4+ Good+ Internal Rotation 5 Normal Left Flexion (L2) 5 Normal Extension (S1) 4+ Good+ Abduction 4+ Good+ Adduction 5 Normal External Rotation 5 Normal Internal Rotation 5 Normal Knee Strength Knee Manual Muscle Testing Right Flexion (S2) 5 Normal Extension (L3) 5 Normal Left Flexion (S2) 5 Normal Extension (L3) 5 Normal Ankle/Foot Strength Ankle and Foot Manual Muscle Testing Left Dorsiflexion (L4) 5 Normal Plantarflexion (S1) 5 Normal Inversion 5 Normal Eversion (S1) 5 Normal Comments 20 heel raises Right Dorsiflexion (L4) 5 Normal Plantarflexion (S1) 4 Good Inversion 5 Normal Eversion (S1) 5 Normal Comments starts to bend knee a little after about 10 but does do 20 PT-OP-Q Treatments Start: 11/01/24 16:34 Freq: Status: Active Protocol: Document 11/20/24 12:27 AB (Rec: 11/20/24 16:32 AB [id number]) Therapeutic Exercises Supine Exercises HS stretch Supine Exercise Name 1. supine 2. Seated (HEP) Reps/Minutes 60 sec eachLE X 1 Comments Verbal cues piriformis Side right Reps/Minutes 60 sec X 1 Comments verbal cues core Supine Exercise Name DL isometric flex Side bilateral Reps/Minutes 15 sec bridge Supine Exercise Name SL Side bilateral Reps/Minutes 10 Standing Exercises sit to stand Side bilateral Reps/Minutes X6 Comments Patient ed mech of sit to stand and self tactile cues for hip hinge squat Standing Exercise Name mini squat HEP Side bilateral Reps/Minutes X10 X2 Comments repeated verbal cues and pt ed use of self tactile cues for hip hinge Manual Therapy Treatment Consent Patient gave verbal consent for manual Yes treatment Soft Tissue Mobilization lumbar Body Location Lumbar parspinals R Mobilization Type Sustained Pressure Intensity/Depth Moderate Body Position Sidelying hip Body Location R glutes/piriformis/ illio psoas Mobilization Type Cross-Friction,Rolling, Sustained Pressure Intensity/Depth Moderate Body Position Sidelying Manual Techniques MET for R AI Left PI and pubic shotgun Reps/Duration 6 X 6 seconds each PT-OP-T Assessment and Plan Start: 11/01/24 16:34 Freq: Status: Active Protocol: Document 11/20/24 12:27 AB (Rec: 11/20/24 16:32 AB [id number]) Physical Therapy Assessment Goals squat Short Term Goal (STG) Pt will be able to do full DL squat w/o pain w/o cues and good form STG Duration 12/13 Halfway Goal (LTG) Pt will be narayan to squat down to ground and get up/down from the ground w/o inc pain or difficulty LTG Duration 01/22 activity Short Term Goal (STG) Pt will be able to do go up/ down stairs w/o inc knee pain STG Duration 12/18 Halfway Goal (LTG) Pt will be able to run hills and at least 3 miles w/o inc pain in knee or back LTG Duration 01/22/25 strength Short Term Goal (STG) Pt will be indep w/HEP STG Duration 12/13 Halfway Goal (LTG) Pt will score 5/5 BLE MMT and at least 3/5 LPM to show improved stability to allow for easier mobility. LTG Duration 01/22/25 Assessment Summary Assessment Patient reports feeling a Little better end of session. R HS lacking 40 deg AROM 900/ 90 position likely impacting hip hinge with sit to and from stand, repeated cues required for hip hinge with mini squat . Physical Therapy Plan Frequency and Duration Frequency of Treatment 2x/Week Duration of treatment (weeks) 10 Plan of Care Start Date 11/13/24 Plan of Care End Date 01/22/25 Next Visit Focus/Plan Next Note Type Treatment Note Next Visit Plan review exercises, add flexibility exercises like downdog, cat/cow, open book manual to pelvis and hip and lumbar especially L3 and 4
--- NOTE | 2024-11-23 16:35 | PT.OTN ---
Current Diagnoses Radiculopathy, lumbar region (11/23/24) Physical Therapy Treatment Note PT-OP-A Visit Information Start: 11/01/24 16:34 Freq: Status: Active Protocol: Document 11/23/24 13:01 AB (Rec: 11/23/24 16:19 AB [id number]) Out-Patient Physical Therapy Visit Information Visit Information Visit Type Treatment Note Visit Note Janine Visit Start Time 13:54 Visit Stop Time 14:33 Visit Number 4 Number of 2ND GRADE TEACHER Visits 2 PT-OP-B Current Condition Start: 11/01/24 16:34 Freq: Status: Active Protocol: Document 11/13/24 13:29 LR (Rec: 11/13/24 14:36 LR [id number]) Current Condition History of Current Condition Onset Date summer 2023 Current Complaints back pain, R knee pain History of Current Condition Pt reports mid summer last year was trying to get back to running the trail. Going down hill, had pain in R knee. Has seen various doctors and they think it may be spine related . Also noticed, sometimes when spine is in certain positions , gets the R knee pain. Does feel back being off. Notes back ache. When it feels right , can do leg ext and when it is off, can't lift as much weight in knee. Prior to last summer, has had back aches here and there but last summer was the first time it started . Still running, mostly on treadmill without incline. Runs about 1 to 2 miles at a time. Feels it when going up/ down stairs. 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 Had also a benign growth in R lat lower leg karma they removed. hx of malrotated intestine sx 5 -6 years ago d/ t strange abdominal pain which fixed pain. has HTN and takes BP meds. Had surgery to loosen tendons on R foot in his 30s but toes on R still struggle ot be fully relaxed. Used ot run 5ks before this injury. Has been going to the gym but isn't feeling like he is progressing. Hx of L knee ACL repair. DId have hx of injury to R knee too but was told didn't need sx. Knee exercises always worked in the past though Prior Treatments and Tests Did PT last year for back pain -helped a little Treatment Goals Patient/Caregiver Goals Get back stronger so more stable, be able to run hills, stairs and be able to get up/ down from squat/ground PT-OP-C Subjective Start: 11/01/24 16:34 Freq: Status: Active Protocol: Document 11/23/24 13:01 AB (Rec: 11/23/24 16:19 AB [id number]) OP-PT Subjective Patient Comments Patient Comments Patient running into session excessively quad dominant pattern. Patient reports able to perform LAQ with 70 lb last night. Patient demonstrates ex he uses to put spine back in place, performing bilateral LE ext from hooklying, and bilateral LE 's extended with excessive swing L and right from hooklying. Patient ed to discontinue these exercises. PT-OP-D Balance Start: 11/01/24 16:34 Freq: Status: Active Protocol: Document 11/13/24 13:29 [facility] (Rec: 11/13/24 14:36 [facility] [id number]) Balance Tests Single Limb Standing Single Limb- Right >30 sec w/opp hip drop and deviation Single Limb- Left >30 sec PT-OP-G Mobility & Gait Start: 11/01/24 16:34 Freq: Status: Active Protocol: Document 11/13/24 13:29 [facility] (Rec: 11/13/24 14:36 [facility] [id number]) OP Gait Assessment Comments Gait Comments walk: opp hip drop w/RLE WB, dec push off and stance time run: opp hip drop w/RLE WB, dec push off and stance time, IR of R femur PT-OP-J Posture/Palpation/Skin Start: 11/01/24 16:34 Freq: Status: Active Protocol: Document 11/13/24 13:29 [facility] (Rec: 11/13/24 14:36 [facility] [id number]) Posture Evaluation Krzysztof Postural Classification System Krzysztof Postural Classifications Posterior/Anterior Lumbar Protective Mechanism Left AP 0 Lumbar Protective Mechanism Right AP 0 Lumbar Protective Mechanism Left PA 2 Lumbar Protective Mechanism Right PA 0 Comments Posture Comments L foot pronation, R foot supination, genu recurvatum, IR of R femur and ER tibia, L PSIS post, R iliac crest higher, equal greater trochanters, inc kyphosis PT-OP-K Range of Motion Start: 11/01/24 16:34 Freq: Status: Active Protocol: Document 11/13/24 13:29 [facility] (Rec: 11/13/24 14:36 [facility] [id number]) Lumbar Spine Range of Motion Lumbar Spine Active Percentage Flexion 80 Extension 75 Rotation Left 70 Rotation Right 80 Lateral Flexion Left 70 Lateral Flexion Right 80 Comments no pain, just feels tight at end ranges PT-OP-L Special Tests Start: 11/01/24 16:34 Freq: Status: Active Protocol: Document 11/13/24 13:29 [facility] (Rec: 11/13/24 14:36 [facility] [id number]) Special Tests Lumbar Spine Special Tests Straight Leg Raise Test Results 59 deg R, 60 L Slump Test Results neg Other Special Tests Special Tests reflexes PT-OP-M Strength Start: 11/01/24 16:34 Freq: Status: Active Protocol: Document 11/13/24 13:29 [facility] (Rec: 11/13/24 14:36 [facility] [id number]) Hip Strength Hip Manual Muscle Testing Right Flexion (L2) 5 Normal Extension (S1) 4- Good- Abduction 4 Good Adduction 4+ Good+ External Rotation 4+ Good+ Internal Rotation 5 Normal Left Flexion (L2) 5 Normal Extension (S1) 4+ Good+ Abduction 4+ Good+ Adduction 5 Normal External Rotation 5 Normal Internal Rotation 5 Normal Knee Strength Knee Manual Muscle Testing Right Flexion (S2) 5 Normal Extension (L3) 5 Normal Left Flexion (S2) 5 Normal Extension (L3) 5 Normal Ankle/Foot Strength Ankle and Foot Manual Muscle Testing Left Dorsiflexion (L4) 5 Normal Plantarflexion (S1) 5 Normal Inversion 5 Normal Eversion (S1) 5 Normal Comments 20 heel raises Right Dorsiflexion (L4) 5 Normal Plantarflexion (S1) 4 Good Inversion 5 Normal Eversion (S1) 5 Normal Comments starts to bend knee a little after about 10 but does do 20 PT-OP-Q Treatments Start: 11/01/24 16:34 Freq: Status: Active Protocol: Document 11/23/24 13:01 AB (Rec: 11/23/24 16:19 AB [id number]) Therapeutic Exercises Supine Exercises alt UE flex on foam roller Supine Exercise Name HEP Side bilateral Reps/Minutes X18 Comments verbal cues piriformis Supine Exercise Name HEP Side right Reps/Minutes 60 sec X 2 Comments verbal cues Prone Exercises bug Side bilateral Reps/Minutes X2 then X5 Comments verbal cues, not added to HEP due to reports popping sensation low back bird dog Side bilateral Reps/Minutes X 12 Comments verbal cues use of dowel Sidelying Exercises side plank Reps/Minutes 8 sec each LE Cat cow Side bilateral Reps/Minutes X10 Comments verbal cues Standing Exercises self STM/mobilization racquet balls on wall Side bilateral Reps/Minutes 1-2 min Comments verbal cues for position of balls and to squat Gait Training Gait Activity running Distance/Duration 15 feet X 3 Treatment Focus vc for slight hip hinge when running. Manual Therapy Treatment Manual Techniques MET for R AI Left PI and pubic shotgun Reps/Duration 6 X 6 seconds each PT-OP-T Assessment and Plan Start: 11/01/24 16:34 Freq: Status: Active Protocol: Document 11/23/24 13:01 AB (Rec: 11/23/24 16:19 AB [id number]) Physical Therapy Assessment Goals squat Short Term Goal (STG) Pt will be able to do full DL squat w/o pain w/o cues and good form STG Duration 12/13 Design Verification Engineer Goal (LTG) Pt will be narayan to squat down to ground and get up/down from the ground w/o inc pain or difficulty LTG Duration 01/22 activity Short Term Goal (STG) Pt will be able to do go up/ down stairs w/o inc knee pain STG Duration 12/18 Nursing Home Goal (LTG) Pt will be able to run hills and at least 3 miles w/o inc pain in knee or back LTG Duration 01/22/25 strength Short Term Goal (STG) Pt will be indep w/HEP STG Duration 12/13 Design Verification Engineer Goal (LTG) Pt will score 5/5 BLE MMT and at least 3/5 LPM to show improved stability to allow for easier mobility. LTG Duration 01/22/25 Assessment Summary Assessment Patient reports having no pain end of session. Physical Therapy Plan Frequency and Duration Frequency of Treatment 2x/Week Duration of treatment (weeks) 10 Plan of Care Start Date 11/13/24 Plan of Care End Date 01/22/25 Next Visit Focus/Plan Next Note Type Treatment Note Next Visit Plan review exercises, add flexibility exercises like downdog/( bottoms up/review HS stretch, ) open book manual to pelvis and hip and lumbar especially L3 and 4
--- NOTE | 2024-11-28 16:24 | PT.OTN ---
Current Diagnoses Radiculopathy, lumbar region (11/28/24) Physical Therapy Treatment Note PT-OP-A Visit Information Start: 11/01/24 16:34 Freq: Status: Active Protocol: Document 11/28/24 12:38 AB (Rec: 11/28/24 16:23 AB [id number]) Out-Patient Physical Therapy Visit Information Visit Information Visit Type Treatment Note Visit Note Janine Visit Start Time 13:04 Visit Stop Time 13:47 Visit Number 5 Number of PAD HAND Visits 3 PT-OP-B Current Condition Start: 11/01/24 16:34 Freq: Status: Active Protocol: Document 11/13/24 13:29 LR (Rec: 11/13/24 14:36 LR [id number]) Current Condition History of Current Condition Onset Date summer 2023 Current Complaints back pain, R knee pain History of Current Condition Pt reports mid summer last year was trying to get back to running the trail. Going down hill, had pain in R knee. Has seen various doctors and they think it may be spine related . Also noticed, sometimes when spine is in certain positions , gets the R knee pain. Does feel back being off. Notes back ache. When it feels right , can do leg ext and when it is off, can't lift as much weight in knee. Prior to last summer, has had back aches here and there but last summer was the first time it started . Still running, mostly on treadmill without incline. Runs about 1 to 2 miles at a time. Feels it when going up/ down stairs. 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 Had also a benign growth in R lat lower leg karma they removed. hx of malrotated intestine sx 5 -6 years ago d/ t strange abdominal pain which fixed pain. has HTN and takes BP meds. Had surgery to loosen tendons on R foot in his 30s but toes on R still struggle ot be fully relaxed. Used ot run 5ks before this injury. Has been going to the gym but isn't feeling like he is progressing. Hx of L knee ACL repair. DId have hx of injury to R knee too but was told didn't need sx. Knee exercises always worked in the past though Prior Treatments and Tests Did PT last year for back pain -helped a little Treatment Goals Patient/Caregiver Goals Get back stronger so more stable, be able to run hills, stairs and be able to get up/ down from squat/ground PT-OP-C Subjective Start: 11/01/24 16:34 Freq: Status: Active Protocol: Document 11/28/24 12:38 AB (Rec: 11/28/24 16:23 AB [id number]) OP-PT Subjective Patient Comments Patient Comments Patient reports back is a dull discomfort start of session in the back. Patient attributes that to sitting at his desk. PT-OP-D Balance Start: 11/01/24 16:34 Freq: Status: Active Protocol: Document 11/13/24 13:29 [facility] (Rec: 11/13/24 14:36 [facility] [id number]) Balance Tests Single Limb Standing Single Limb- Right >30 sec w/opp hip drop and deviation Single Limb- Left >30 sec PT-OP-G Mobility & Gait Start: 11/01/24 16:34 Freq: Status: Active Protocol: Document 11/13/24 13:29 [facility] (Rec: 11/13/24 14:36 [facility] [id number]) OP Gait Assessment Comments Gait Comments walk: opp hip drop w/RLE WB, dec push off and stance time run: opp hip drop w/RLE WB, dec push off and stance time, IR of R femur PT-OP-J Posture/Palpation/Skin Start: 11/01/24 16:34 Freq: Status: Active Protocol: Document 11/13/24 13:29 [facility] (Rec: 11/13/24 14:36 [facility] [id number]) Posture Evaluation Krzysztof Postural Classification System Krzysztof Postural Classifications Posterior/Anterior Lumbar Protective Mechanism Left AP 0 Lumbar Protective Mechanism Right AP 0 Lumbar Protective Mechanism Left PA 2 Lumbar Protective Mechanism Right PA 0 Comments Posture Comments L foot pronation, R foot supination, genu recurvatum, IR of R femur and ER tibia, L PSIS post, R iliac crest higher, equal greater trochanters, inc kyphosis PT-OP-K Range of Motion Start: 11/01/24 16:34 Freq: Status: Active Protocol: Document 11/13/24 13:29 [facility] (Rec: 11/13/24 14:36 [facility] [id number]) Lumbar Spine Range of Motion Lumbar Spine Active Percentage Flexion 80 Extension 75 Rotation Left 70 Rotation Right 80 Lateral Flexion Left 70 Lateral Flexion Right 80 Comments no pain, just feels tight at end ranges PT-OP-L Special Tests Start: 11/01/24 16:34 Freq: Status: Active Protocol: Document 11/13/24 13:29 [facility] (Rec: 11/13/24 14:36 [facility] [id number]) Special Tests Lumbar Spine Special Tests Straight Leg Raise Test Results 59 deg R, 60 L Slump Test Results neg Other Special Tests Special Tests reflexes PT-OP-M Strength Start: 11/01/24 16:34 Freq: Status: Active Protocol: Document 11/13/24 13:29 [facility] (Rec: 11/13/24 14:36 [facility] [id number]) Hip Strength Hip Manual Muscle Testing Right Flexion (L2) 5 Normal Extension (S1) 4- Good- Abduction 4 Good Adduction 4+ Good+ External Rotation 4+ Good+ Internal Rotation 5 Normal Left Flexion (L2) 5 Normal Extension (S1) 4+ Good+ Abduction 4+ Good+ Adduction 5 Normal External Rotation 5 Normal Internal Rotation 5 Normal Knee Strength Knee Manual Muscle Testing Right Flexion (S2) 5 Normal Extension (L3) 5 Normal Left Flexion (S2) 5 Normal Extension (L3) 5 Normal Ankle/Foot Strength Ankle and Foot Manual Muscle Testing Left Dorsiflexion (L4) 5 Normal Plantarflexion (S1) 5 Normal Inversion 5 Normal Eversion (S1) 5 Normal Comments 20 heel raises Right Dorsiflexion (L4) 5 Normal Plantarflexion (S1) 4 Good Inversion 5 Normal Eversion (S1) 5 Normal Comments starts to bend knee a little after about 10 but does do 20 PT-OP-Q Treatments Start: 11/01/24 16:34 Freq: Status: Active Protocol: Document 11/28/24 12:38 AB (Rec: 11/28/24 16:23 AB [id number]) Therapeutic Exercises Supine Exercises bug Side bilateral Equipment Used Not added to HEP Reps/Minutes X5 Comments Verbal cues tactile monitored for pain/clicking Modified Fahad stretch Side bilateral Reps/Minutes 60 sec Comments with AROM knee flexion, VC for LE positioning piriformis Supine Exercise Name HEP Side right Reps/Minutes 60 sec X 2 Comments verbal cues bridge Supine Exercise Name SL Side bilateral Reps/Minutes 10 Prone Exercises cat cow Prone Exercise Name cat cow Sidelying Exercises Open book Side bilateral Reps/Minutes X 5 holding 3 breath Comments verbal cues Therapeutic Activity Therapeutic Activity seated positioning Comments Towel roll under ischial tuberosities to inc ant pelvic tilt in seated, initiated with 1/2 foam roller for training Manual Therapy Treatment Consent Patient gave verbal consent for manual Yes treatment Soft Tissue Mobilization lumbar Body Location Lumbar parspinals B Mobilization Type Sustained Pressure Intensity/Depth Moderate Body Position Sidelying hip Body Location B glutes/piriformis/ illio psoas Mobilization Type Cross-Friction,Rolling, Sustained Pressure Intensity/Depth Moderate Body Position Sidelying Manual Techniques MET for R AI Left PI and pubic shotgun Reps/Duration 6 X 6 seconds each PT-OP-T Assessment and Plan Start: 11/01/24 16:34 Freq: Status: Active Protocol: Document 11/28/24 12:38 AB (Rec: 11/28/24 16:23 AB [id number]) Physical Therapy Assessment Goals squat Short Term Goal (STG) Pt will be able to do full DL squat w/o pain w/o cues and good form STG Duration 12/13 Long-Term Goal (LTG) Pt will be narayan to squat down to ground and get up/down from the ground w/o inc pain or difficulty LTG Duration 01/22 activity Short Term Goal (STG) Pt will be able to do go up/ down stairs w/o inc knee pain STG Duration 12/18 Long-Term Goal (LTG) Pt will be able to run hills and at least 3 miles w/o inc pain in knee or back LTG Duration 01/22/25 strength Short Term Goal (STG) Pt will be indep w/HEP STG Duration 12/13 Long-Term Goal (LTG) Pt will score 5/5 BLE MMT and at least 3/5 LPM to show improved stability to allow for easier mobility. LTG Duration 01/22/25 Assessment Summary Assessment Patient reports feeling better end of session. LE muscle stiffness continues to impact pelvis and lumbar spine during functional mobility/sit to stand, seated posture. Physical Therapy Plan Frequency and Duration Frequency of Treatment 2x/Week Duration of treatment (weeks) 10 Plan of Care Start Date 11/13/24 Plan of Care End Date 01/22/25 Next Visit Focus/Plan Next Note Type Treatment Note Next Visit Plan review exercises, add flexibility exercises like downdog/(continue bottoms up/ review HS stretch, ) manual to pelvis and hip and lumbar especially L3 and 4, Revisit bug with decreased LE extension.
--- NOTE | 2024-12-12 18:20 | PT.OTN ---
Current Diagnoses Radiculopathy, lumbar region (12/12/24) Physical Therapy Treatment Note PT-OP-A Visit Information Start: 11/01/24 16:34 Freq: Status: Active Protocol: Document 12/12/24 14:34 [facility] (Rec: 12/12/24 15:21 [facility] [id number]) Out-Patient Physical Therapy Visit Information Visit Information Visit Type Progress Note Visit Note Janine Visit Start Time 14:34 Visit Stop Time 15:15 Visit Number 6 Number of HEDGE FUND MANAGER Visits 0 PT-OP-B Current Condition Start: 11/01/24 16:34 Freq: Status: Active Protocol: Document 11/13/24 13:29 [facility] (Rec: 11/13/24 14:36 [facility] [id number]) Current Condition History of Current Condition Onset Date summer 2023 Current Complaints back pain, R knee pain History of Current Condition Pt reports mid summer last year was trying to get back to running the trail. Going down hill, had pain in R knee. Has seen various doctors and they think it may be spine related . Also noticed, sometimes when spine is in certain positions , gets the R knee pain. Does feel back being off. Notes back ache. When it feels right , can do leg ext and when it is off, can't lift as much weight in knee. Prior to last summer, has had back aches here and there but last summer was the first time it started . Still running, mostly on treadmill without incline. Runs about 1 to 2 miles at a time. Feels it when going up/ down stairs. 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 Had also a benign growth in R lat lower leg karma they removed. hx of malrotated intestine sx 5 -6 years ago d/ t strange abdominal pain which fixed pain. has HTN and takes BP meds. Had surgery to loosen tendons on R foot in his 30s but toes on R still struggle ot be fully relaxed. Used ot run 5ks before this injury. Has been going to the gym but isn't feeling like he is progressing. Hx of L knee ACL repair. DId have hx of injury to R knee too but was told didn't need sx. Knee exercises always worked in the past though Prior Treatments and Tests Did PT last year for back pain -helped a little Treatment Goals Patient/Caregiver Goals Get back stronger so more stable, be able to run hills, stairs and be able to get up/ down from squat/ground PT-OP-C Subjective Start: 11/01/24 16:34 Freq: Status: Active Protocol: Document 12/12/24 14:34 [facility] (Rec: 12/12/24 15:[id number]-PT Subjective Patient Comments Patient Comments Pt reports noting something in mid back since starting since exercises. Walked the loop at [facility] and felt a little bit in the knee on the way down. Running on treadmill w/o issue flat. PT-OP-D Balance Start: 11/01/24 16:34 Freq: Status: Active Protocol: Document 11/13/24 13:29 [facility] (Rec: 11/13/24 14:36 [id number] Balance Tests Single Limb Standing Single Limb- Right >30 sec w/opp hip drop and deviation Single Limb- Left >30 sec PT-OP-G Mobility & Gait Start: 11/01/24 16:34 Freq: Status: Active Protocol: Document 11/13/24 13:29 [facility] (Rec: 11/13/24 14:36 [id number] OP Gait Assessment Comments Gait Comments walk: opp hip drop w/RLE WB, dec push off and stance time run: opp hip drop w/RLE WB, dec push off and stance time, IR of R femur PT-OP-J Posture/Palpation/Skin Start: 11/01/24 16:34 Freq: Status: Active Protocol: Document 12/12/24 14:34 [facility] (Rec: 12/12/24 15:21 [facility] [id number]) Posture Evaluation Krzysztof Postural Classification System Krzysztof Postural Classifications Posterior/Anterior Lumbar Protective Mechanism Left AP 2 Lumbar Protective Mechanism Right AP 2 Lumbar Protective Mechanism Left PA 2 Lumbar Protective Mechanism Right PA 2 PT-OP-K Range of Motion Start: 11/01/24 16:34 Freq: Status: Active Protocol: Document 11/13/24 13:29 [facility] (Rec: 11/13/24 14:36 [facility] [id number]) Lumbar Spine Range of Motion Lumbar Spine Active Percentage Flexion 80 Extension 75 Rotation Left 70 Rotation Right 80 Lateral Flexion Left 70 Lateral Flexion Right 80 Comments no pain, just feels tight at end ranges PT-OP-L Special Tests Start: 11/01/24 16:34 Freq: Status: Active Protocol: Document 11/13/24 13:29 [facility] (Rec: 11/13/24 14:36 [facility] [id number]) Special Tests Lumbar Spine Special Tests Straight Leg Raise Test Results 59 deg R, 60 L Slump Test Results neg Other Special Tests Special Tests reflexes PT-OP-M Strength Start: 11/01/24 16:34 Freq: Status: Active Protocol: Document 12/12/24 14:34 [facility] (Rec: 12/12/24 15:21 [facility] [id number]) Hip Strength Hip Manual Muscle Testing Right Flexion (L2) 5 Normal Extension (S1) 5 Normal Abduction 4+ Good+ Adduction 5 Normal External Rotation 5 Normal Internal Rotation 5 Normal Left Flexion (L2) 5 Normal Extension (S1) 5 Normal Abduction 5 Normal Adduction 5 Normal External Rotation 5 Normal Internal Rotation 5 Normal Knee Strength Knee Manual Muscle Testing Right Flexion (S2) 5 Normal Extension (L3) 5 Normal Left Flexion (S2) 5 Normal Extension (L3) 5 Normal Ankle/Foot Strength Ankle and Foot Manual Muscle Testing Left Dorsiflexion (L4) 5 Normal Plantarflexion (S1) 5 Normal Inversion 5 Normal Eversion (S1) 5 Normal Comments 20 heel raises Right Dorsiflexion (L4) 5 Normal Plantarflexion (S1) 4+ Good+ Inversion 5 Normal Eversion (S1) 5 Normal Comments cues to avoid knee bend throughout and unable to stop last 3 reps PT-OP-Q Treatments Start: 11/01/24 16:34 Freq: Status: Active Protocol: Document 12/12/24 14:34 [facility] (Rec: 12/12/24 15:21 [facility] [id number]) Therapeutic Exercises Sidelying Exercises Open book Side bilateral Reps/Minutes 6 ea Comments cues thoracic motion and no hold Standing Exercises squat Standing Exercise Name SL Side bilateral Reps/Minutes 10 Comments mirror Other Exercises isometrics Other Exercise Name MMT and LPM Side bilateral Manual Therapy Treatment Consent Patient gave verbal consent for manual Yes treatment Soft Tissue Mobilization thoracic Body Location paraspinals & rhomboids R Mobilization Type Rolling,Strumming Intensity/Depth Moderate Body Position Sidelying lumbar Body Location Lumbar parspinals B Mobilization Type Sustained Pressure Intensity/Depth Moderate Body Position Sidelying Joint Mobilizations sacrum Body Position Sitting Comments R PA w/tilts thoracic Comments PA T6 and7 lumbar Comments upglide L4 R c/r, PA R L5 seated w/tilts PT-OP-T Assessment and Plan Start: 11/01/24 16:34 Freq: Status: Active Protocol: Document 12/12/24 14:34 [facility] (Rec: 12/12/24 15:21 [facility] [id number]) Physical Therapy Assessment Goals squat Short Term Goal (STG) Pt will be able to do full DL squat w/o pain w/o cues and good form STG Duration achieved 12/12 [facility] Goal (LTG) Pt will be narayan to squat down to ground and get up/down from the ground w/o inc pain or difficulty 12/12-better most of the time LTG Duration 01/22 activity Short Term Goal (STG) Pt will be able to do go up/ down stairs w/o inc knee pain 12/12-achieved mostly but occ when back feels off STG Duration 12/18 Patrol Deputy Sheriff Goal (LTG) Pt will be able to run hills and at least 3 miles w/o inc pain in knee or back 12/12-has not run hills, can run flat and walk hills LTG Duration 01/22/25 strength Short Term Goal (STG) Pt will be indep w/HEP STG Duration achieved advaninga s able Patrol Deputy Sheriff Goal (LTG) Pt will score 5/5 BLE MMT and at least 3/5 LPM to show improved stability to allow for easier mobility. 12/12-improving LTG Duration 01/22/25 Assessment Summary Assessment pt is progressing w/PT with improved strength and greater ease with activity. He is encouraged to progress his running to do some uphill work also. He is still having difficulty w/downhill w/mild pain when walking but has not tried running. He does have weakness in R calf significantly likely causing more impact on R side causing knee and back impact to be inc . Cont PT for strength, running mechanics and dec pain Physical Therapy Plan Frequency and Duration Frequency of Treatment 2x/Week Duration of treatment (weeks) 10 Plan of Care Start Date 11/13/24 Plan of Care End Date 01/22/25 Therapeutic Interventions Therapeutic Interventions Balance Training,Gait Training ,Home Exercise Program,Joint Mobilizations,Manual Therapy, Neuromuscular Re-education, Orthotic/Prosthetic Management ,Patient/Caregiver Education, Self-Care/Home Management,Soft Tissue Mobilization,Taping, Therapeutic Activities, Therapeutic Exercises Modalities Cold Pack/Ice Massage,Electric Stimulation,Hot Packs, Infrared Therapy,Traction- Mechanical,Ultrasound Next Visit Focus/Plan Next Note Type Treatment Note Next Visit Plan review open book and SL squat ; work on spinal alignment and cont to advance core work and running specific activities.
--- NOTE | 2024-12-19 15:23 | PT.OTN ---
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 Going down hill, had pain in R knee. Has seen various doctors and they think it may be spine related . Also noticed, sometimes when spine is in certain positions , gets the R knee pain. Does feel back being off. Notes back ache. When it feels right , can do leg ext and when it is off, can't lift as much weight in knee. Prior to last summer, has had back aches here and there but last summer was the first time it started . Still running, mostly on treadmill without incline. Runs about 1 to 2 miles at a time. Feels it when going up/ down stairs. 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 Had also a benign growth in R lat lower leg karma they removed. hx of malrotated intestine sx 5 -6 years ago d/ t strange abdominal pain which fixed pain. has HTN and takes BP meds. Had surgery to loosen tendons on R foot in his 30s but toes on R still struggle ot be fully relaxed. Used ot run 5ks before this injury. Has been going to the gym but isn't feeling like he is progressing. Hx of L knee ACL repair. DId have hx of injury to R knee too but was told didn't need sx. Knee exercises always worked in the past though Prior Treatments and Tests Did PT last year for back pain -helped a little Treatment Goals Patient/Caregiver Goals Get back stronger so more stable, be able to run hills, stairs and be able to get up/ down from squat/ground PT-OP-C Subjective Start: 11/01/24 16:34 Freq: Status: Active Protocol: Document 12/19/24 12:58 AB (Rec: 12/19/24 15:22 AB [id number]) OP-PT Subjective Patient Comments Patient Comments Patient reports [place] [address], about an hour hike with no increased pain, reports this hike had hills. Patient reports since performing open book something has woken un in that area, has discomfort a few times a week. PT-OP-D Balance Start: 11/01/24 16:34 Freq: Status: Active Protocol: Document 11/13/24 13:29 [facility] (Rec: 11/13/24 14:36 [facility] [id number]) Balance Tests Single Limb Standing Single Limb- Right >30 sec w/opp hip drop and deviation Single Limb- Left >30 sec PT-OP-G Mobility & Gait Start: 11/01/24 16:34 Freq: Status: Active Protocol: Document 11/13/24 13:29 [facility] (Rec: 11/13/24 14:36 [facility] [id number]) OP Gait Assessment Comments Gait Comments walk: opp hip drop w/RLE WB, dec push off and stance time run: opp hip drop w/RLE WB, dec push off and stance time, IR of R femur PT-OP-J Posture/Palpation/Skin Start: 11/01/24 16:34 Freq: Status: Active Protocol: Document 12/12/24 14:34 [facility] (Rec: 12/12/24 15:21 [facility] [id number]) Posture Evaluation Krzysztof Postural Classification System Krzysztof Postural Classifications Posterior/Anterior Lumbar Protective Mechanism Left AP 2 Lumbar Protective Mechanism Right AP 2 Lumbar Protective Mechanism Left PA 2 Lumbar Protective Mechanism Right PA 2 PT-OP-K Range of Motion Start: 11/01/24 16:34 Freq: Status: Active Protocol: Document 11/13/24 13:29 [facility] (Rec: 11/13/24 14:36 [facility] [id number]) Lumbar Spine Range of Motion Lumbar Spine Active Percentage Flexion 80 Extension 75 Rotation Left 70 Rotation Right 80 Lateral Flexion Left 70 Lateral Flexion Right 80 Comments no pain, just feels tight at end ranges PT-OP-L Special Tests Start: 11/01/24 16:34 Freq: Status: Active Protocol: Document 11/13/24 13:29 [facility] (Rec: 11/13/24 14:36 [facility] [id number]) Special Tests Lumbar Spine Special Tests Straight Leg Raise Test Results 59 deg R, 60 L Slump Test Results neg Other Special Tests Special Tests reflexes PT-OP-M Strength Start: 11/01/24 16:34 Freq: Status: Active Protocol: Document 12/12/24 14:34 [facility] (Rec: 12/12/24 15:21 [facility] [id number]) Hip Strength Hip Manual Muscle Testing Right Flexion (L2) 5 Normal Extension (S1) 5 Normal Abduction 4+ Good+ Adduction 5 Normal External Rotation 5 Normal Internal Rotation 5 Normal Left Flexion (L2) 5 Normal Extension (S1) 5 Normal Abduction 5 Normal Adduction 5 Normal External Rotation 5 Normal Internal Rotation 5 Normal Knee Strength Knee Manual Muscle Testing Right Flexion (S2) 5 Normal Extension (L3) 5 Normal Left Flexion (S2) 5 Normal Extension (L3) 5 Normal Ankle/Foot Strength Ankle and Foot Manual Muscle Testing Left Dorsiflexion (L4) 5 Normal Plantarflexion (S1) 5 Normal Inversion 5 Normal Eversion (S1) 5 Normal Comments 20 heel raises Right Dorsiflexion (L4) 5 Normal Plantarflexion (S1) 4+ Good+ Inversion 5 Normal Eversion (S1) 5 Normal Comments cues to avoid knee bend throughout and unable to stop last 3 reps PT-OP-Q Treatments Start: 11/01/24 16:34 Freq: Status: Active Protocol: Document 12/19/24 12:58 AB (Rec: 12/19/24 15:22 AB [id number]) Therapeutic Exercises Supine Exercises core Supine Exercise Name DL isometric flex Side bilateral Reps/Minutes 20 sec Sidelying Exercises Open book Sidelying Exercise Name initiates with UE use Side bilateral Reps/Minutes 6 ea Comments no hold side plank Sidelying Exercise Name fore arm and knees Reps/Minutes 30 sec each side Comments Verbal and visual cues Standing Exercises Glute med isometric Side bilateral Reps/Minutes one min each LE Comments Verbal and visual cues Heel raise Standing Exercise Name Eccentric R / Single leg left Side bilateral Reps/Minutes X 10 Comments verbal and visual cues for ecc , verbal cues to lower slowly single LE left squat Standing Exercise Name SL initiates with UE use Side bilateral Reps/Minutes X 3 and X 4 Comments mirror Manual Therapy Treatment Soft Tissue Mobilization thoracic Body Location paraspinals & rhomboids R, inter vert tissue Mobilization Type Cross-Friction,Sustained Pressure Intensity/Depth Moderate Body Position Sidelying PT-OP-T Assessment and Plan Start: 11/01/24 16:34 Freq: Status: Active Protocol: Document 12/19/24 12:58 AB (Rec: 12/19/24 15:22 AB [id number]) Physical Therapy Assessment Goals squat Short Term Goal (STG) Pt will be able to do full DL squat w/o pain w/o cues and good form STG Duration achieved 12/12 Intermediate Goal (LTG) Pt will be narayan to squat down to ground and get up/down from the ground w/o inc pain or difficulty 12/12-better most of the time LTG Duration 01/22 activity Short Term Goal (STG) Pt will be able to do go up/ down stairs w/o inc knee pain 12/12-achieved mostly but occ when back feels off STG Duration 12/18 Intermediate Goal (LTG) Pt will be able to run hills and at least 3 miles w/o inc pain in knee or back 12/12-has not run hills, can run flat and walk hills LTG Duration 01/22/25 strength Short Term Goal (STG) Pt will be indep w/HEP STG Duration achieved advaninga s able Intermediate Goal (LTG) Pt will score 5/5 BLE MMT and at least 3/5 LPM to show improved stability to allow for easier mobility. 12/12-improving LTG Duration 01/22/25 Assessment Summary Assessment Patient able to control dynamic valgus at a very limited depth for single leg squat. Haritha reports thoracic area is the same end of session. Physical Therapy Plan Frequency and Duration Frequency of Treatment 2x/Week Duration of treatment (weeks) 10 Plan of Care Start Date 11/13/24 Plan of Care End Date 01/22/25 Next Visit Focus/Plan Next Note Type Treatment Note Next Visit Plan review open book and SL squat ; work on spinal alignment and cont to advance core work and running specific activities.
--- NOTE | 2024-12-25 16:22 | PT.OTN ---
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 Going down hill, had pain in R knee. Has seen various doctors and they think it may be spine related . Also noticed, sometimes when spine is in certain positions , gets the R knee pain. Does feel back being off. Notes back ache. When it feels right , can do leg ext and when it is off, can't lift as much weight in knee. Prior to last summer, has had back aches here and there but last summer was the first time it started . Still running, mostly on treadmill without incline. Runs about 1 to 2 miles at a time. Feels it when going up/ down stairs. 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 Had also a benign growth in R lat lower leg karma they removed. hx of malrotated intestine sx 5 -6 years ago d/ t strange abdominal pain which fixed pain. has HTN and takes BP meds. Had surgery to loosen tendons on R foot in his 30s but toes on R still struggle ot be fully relaxed. Used ot run 5ks before this injury. Has been going to the gym but isn't feeling like he is progressing. Hx of L knee ACL repair. DId have hx of injury to R knee too but was told didn't need sx. Knee exercises always worked in the past though Prior Treatments and Tests Did PT last year for back pain -helped a little Treatment Goals Patient/Caregiver Goals Get back stronger so more stable, be able to run hills, stairs and be able to get up/ down from squat/ground PT-OP-C Subjective Start: 11/01/24 16:34 Freq: Status: Active Protocol: Document 12/25/24 13:44 AB (Rec: 12/25/24 16:22 AB [id number]) OP-PT Subjective Patient Comments Patient Comments Patient reports he was able to go to leg ext first thing when he goes to gym and only has a little discomfort R knee with 70 Lb. Single leg heel raise R LE unable to perform through full ROM. PT-OP-D Balance Start: 11/01/24 16:34 Freq: Status: Active Protocol: Document 11/13/24 13:29 [facility] (Rec: 11/13/24 14:36 [facility] [id number]) Balance Tests Single Limb Standing Single Limb- Right >30 sec w/opp hip drop and deviation Single Limb- Left >30 sec PT-OP-G Mobility & Gait Start: 11/01/24 16:34 Freq: Status: Active Protocol: Document 11/13/24 13:29 [facility] (Rec: 11/13/24 14:36 [facility] [id number]) OP Gait Assessment Comments Gait Comments walk: opp hip drop w/RLE WB, dec push off and stance time run: opp hip drop w/RLE WB, dec push off and stance time, IR of R femur PT-OP-J Posture/Palpation/Skin Start: 11/01/24 16:34 Freq: Status: Active Protocol: Document 12/12/24 14:34 [facility] (Rec: 12/12/24 15:21 [facility] [id number]) Posture Evaluation Krzysztof Postural Classification System Krzysztof Postural Classifications Posterior/Anterior Lumbar Protective Mechanism Left AP 2 Lumbar Protective Mechanism Right AP 2 Lumbar Protective Mechanism Left PA 2 Lumbar Protective Mechanism Right PA 2 PT-OP-K Range of Motion Start: 11/01/24 16:34 Freq: Status: Active Protocol: Document 11/13/24 13:29 [facility] (Rec: 11/13/24 14:36 [facility] [id number]) Lumbar Spine Range of Motion Lumbar Spine Active Percentage Flexion 80 Extension 75 Rotation Left 70 Rotation Right 80 Lateral Flexion Left 70 Lateral Flexion Right 80 Comments no pain, just feels tight at end ranges PT-OP-L Special Tests Start: 11/01/24 16:34 Freq: Status: Active Protocol: Document 11/13/24 13:29 [facility] (Rec: 11/13/24 14:36 [facility] [id number]) Special Tests Lumbar Spine Special Tests Straight Leg Raise Test Results 59 deg R, 60 L Slump Test Results neg Other Special Tests Special Tests reflexes PT-OP-M Strength Start: 11/01/24 16:34 Freq: Status: Active Protocol: Document 12/12/24 14:34 [facility] (Rec: 12/12/24 15:21 [facility] [id number]) Hip Strength Hip Manual Muscle Testing Right Flexion (L2) 5 Normal Extension (S1) 5 Normal Abduction 4+ Good+ Adduction 5 Normal External Rotation 5 Normal Internal Rotation 5 Normal Left Flexion (L2) 5 Normal Extension (S1) 5 Normal Abduction 5 Normal Adduction 5 Normal External Rotation 5 Normal Internal Rotation 5 Normal Knee Strength Knee Manual Muscle Testing Right Flexion (S2) 5 Normal Extension (L3) 5 Normal Left Flexion (S2) 5 Normal Extension (L3) 5 Normal Ankle/Foot Strength Ankle and Foot Manual Muscle Testing Left Dorsiflexion (L4) 5 Normal Plantarflexion (S1) 5 Normal Inversion 5 Normal Eversion (S1) 5 Normal Comments 20 heel raises Right Dorsiflexion (L4) 5 Normal Plantarflexion (S1) 4+ Good+ Inversion 5 Normal Eversion (S1) 5 Normal Comments cues to avoid knee bend throughout and unable to stop last 3 reps PT-OP-Q Treatments Start: 11/01/24 16:34 Freq: Status: Active Protocol: Document 12/25/24 13:44 AB (Rec: 12/25/24 16:22 AB [id number]) Therapeutic Exercises Supine Exercises bug Side bilateral Reps/Minutes 3 X then X 7 with dec ROM Comments Patient reports clicking is less with Dec ROM Modified Fahad stretch Side bilateral Reps/Minutes 60 sec Comments with AROM knee flexion, VC for LE positioning alt UE flex on foam roller Supine Exercise Name HEP Side bilateral Reps/Minutes X 10 Comments verbal cues Sidelying Exercises Open book Sidelying Exercise Name initiates with UE use Side bilateral Reps/Minutes 10 ea Comments 2 sec Standing Exercises Glute med isometric Side bilateral Reps/Minutes one min each LE Comments Verbal and visual cues Heel raise Standing Exercise Name Ecc Side right Reps/Minutes X 3 Comments Patient ed to cont with ecc HR squat Standing Exercise Name SL initiates with UE use Side bilateral Reps/Minutes X 4 Comments mirror Manual Therapy Treatment Consent Patient gave verbal consent for manual Yes treatment Soft Tissue Mobilization thoracic Body Location paraspinals & rhomboids R, inter vert tissue Mobilization Type Cross-Friction,Sustained Pressure Intensity/Depth Moderate Body Position Sidelying lumbar Body Location Lumbar parspinals B Mobilization Type Sustained Pressure Intensity/Depth Moderate Body Position Sidelying PT-OP-T Assessment and Plan Start: 11/01/24 16:34 Freq: Status: Active Protocol: Document 12/25/24 13:44 AB (Rec: 12/25/24 16:22 AB [id number]) Physical Therapy Assessment Goals squat Short Term Goal (STG) Pt will be able to do full DL squat w/o pain w/o cues and good form STG Duration achieved 12/12 Jail Goal (LTG) Pt will be narayan to squat down to ground and get up/down from the ground w/o inc pain or difficulty 12/12-better most of the time LTG Duration 01/22 activity Short Term Goal (STG) Pt will be able to do go up/ down stairs w/o inc knee pain 12/12-achieved mostly but occ when back feels off STG Duration 12/18 Vehicle Window Tinter Goal (LTG) Pt will be able to run hills and at least 3 miles w/o inc pain in knee or back 12/12-has not run hills, can run flat and walk hills LTG Duration 01/22/25 strength Short Term Goal (STG) Pt will be indep w/HEP STG Duration achieved cyndiega s able Vehicle Window Tinter Goal (LTG) Pt will score 5/5 BLE MMT and at least 3/5 LPM to show improved stability to allow for easier mobility. 12/12-improving LTG Duration 01/22/25 Assessment Summary Assessment Patient into session with photos of gym equipment. Appears to be performing a modified Aguilar curl, patient advised to limit to 3X a day and to perform only if pain free. Haritha continues to be unable to perform SL heel raise, but is into session with reports of increased dov to leg press at gym. Physical Therapy Plan Frequency and Duration Frequency of Treatment 2x/Week Duration of treatment (weeks) 10 Plan of Care Start Date 11/13/24 Plan of Care End Date 01/22/25 Next Visit Focus/Plan Next Note Type Treatment Note Next Visit Plan review work on spinal alignment and cont to advance core work and running specific activities. Possibly bird dog and SLS with band to HEP
--- NOTE | 2024-12-27 16:15 | PT.OTN ---
Current Diagnoses Radiculopathy, lumbar region (12/27/24) Physical Therapy Treatment Note PT-OP-A Visit Information Start: 11/01/24 16:34 Freq: Status: Active Protocol: Document 12/27/24 14:24 AB (Rec: 12/27/24 16:15 AB [id number]) Out-Patient Physical Therapy Visit Information Visit Information Visit Type Treatment Note Visit Note Janine Access Code: [email or web address] Visit Start Time 14:37 Visit Stop Time 15:16 Visit Number 9 Number of GARMENT EXAMINER Visits 3 PT-OP-B Current Condition Start: 11/01/24 16:34 Freq: Status: Active Protocol: Document 11/13/24 13:29 [facility] (Rec: 11/13/24 14:36 [facility] [id number]) Current Condition History of Current Condition Onset Date summer 2023 Current Complaints back pain, R knee pain History of Current Condition Pt reports mid summer last year was trying to get back to running the trail. Going down hill, had pain in R knee. Has seen various doctors and they think it may be spine related . Also noticed, sometimes when spine is in certain positions , gets the R knee pain. Does feel back being off. Notes back ache. When it feels right , can do leg ext and when it is off, can't lift as much weight in knee. Prior to last summer, has had back aches here and there but last summer was the first time it started . Still running, mostly on treadmill without incline. Runs about 1 to 2 miles at a time. Feels it when going up/ down stairs. 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 Had also a benign growth in R lat lower leg karma they removed. hx of malrotated intestine sx 5 -6 years ago d/ t strange abdominal pain which fixed pain. has HTN and takes BP meds. Had surgery to loosen tendons on R foot in his 30s but toes on R still struggle ot be fully relaxed. Used ot run 5ks before this injury. Has been going to the gym but isn't feeling like he is progressing. Hx of L knee ACL repair. DId have hx of injury to R knee too but was told didn't need sx. Knee exercises always worked in the past though Prior Treatments and Tests Did PT last year for back pain -helped a little Treatment Goals Patient/Caregiver Goals Get back stronger so more stable, be able to run hills, stairs and be able to get up/ down from squat/ground PT-OP-C Subjective Start: 11/01/24 16:34 Freq: Status: Active Protocol: Document 12/27/24 14:24 AB (Rec: 12/27/24 16:15 AB [id number]) OP-PT Subjective Patient Comments Patient Comments Observed patient running into session, reports no pain with running, comments he hasn't yet revisited the hill where it hurt to run, but is able to walk and hike the hill. Pt ascends and descends 6 inch stairs X 4 X 5 without rails with a reciprocal pattern, reports R knee can feel it, but not pain descending, pre and post manual therapy, no change. PT-OP-D Balance Start: 11/01/24 16:34 Freq: Status: Active Protocol: Document 11/13/24 13:29 [facility] (Rec: 11/13/24 14:36 [facility] [id number]) Balance Tests Single Limb Standing Single Limb- Right >30 sec w/opp hip drop and deviation Single Limb- Left >30 sec PT-OP-G Mobility & Gait Start: 11/01/24 16:34 Freq: Status: Active Protocol: Document 11/13/24 13:29 [facility] (Rec: 11/13/24 14:36 [facility] [id number]) OP Gait Assessment Comments Gait Comments walk: opp hip drop w/RLE WB, dec push off and stance time run: opp hip drop w/RLE WB, dec push off and stance time, IR of R femur PT-OP-J Posture/Palpation/Skin Start: 11/01/24 16:34 Freq: Status: Active Protocol: Document 12/12/24 14:34 [facility] (Rec: 12/12/24 15:21 [facility] [id number]) Posture Evaluation Krzysztof Postural Classification System Krzysztof Postural Classifications Posterior/Anterior Lumbar Protective Mechanism Left AP 2 Lumbar Protective Mechanism Right AP 2 Lumbar Protective Mechanism Left PA 2 Lumbar Protective Mechanism Right PA 2 PT-OP-K Range of Motion Start: 11/01/24 16:34 Freq: Status: Active Protocol: Document 11/13/24 13:29 [facility] (Rec: 11/13/24 14:36 [facility] [id number]) Lumbar Spine Range of Motion Lumbar Spine Active Percentage Flexion 80 Extension 75 Rotation Left 70 Rotation Right 80 Lateral Flexion Left 70 Lateral Flexion Right 80 Comments no pain, just feels tight at end ranges PT-OP-L Special Tests Start: 11/01/24 16:34 Freq: Status: Active Protocol: Document 11/13/24 13:29 [facility] (Rec: 11/13/24 14:36 [facility] [id number]) Special Tests Lumbar Spine Special Tests Straight Leg Raise Test Results 59 deg R, 60 L Slump Test Results neg Other Special Tests Special Tests reflexes PT-OP-M Strength Start: 11/01/24 16:34 Freq: Status: Active Protocol: Document 12/12/24 14:34 [facility] (Rec: 12/12/24 15:21 [facility] [id number]) Hip Strength Hip Manual Muscle Testing Right Flexion (L2) 5 Normal Extension (S1) 5 Normal Abduction 4+ Good+ Adduction 5 Normal External Rotation 5 Normal Internal Rotation 5 Normal Left Flexion (L2) 5 Normal Extension (S1) 5 Normal Abduction 5 Normal Adduction 5 Normal External Rotation 5 Normal Internal Rotation 5 Normal Knee Strength Knee Manual Muscle Testing Right Flexion (S2) 5 Normal Extension (L3) 5 Normal Left Flexion (S2) 5 Normal Extension (L3) 5 Normal Ankle/Foot Strength Ankle and Foot Manual Muscle Testing Left Dorsiflexion (L4) 5 Normal Plantarflexion (S1) 5 Normal Inversion 5 Normal Eversion (S1) 5 Normal Comments 20 heel raises Right Dorsiflexion (L4) 5 Normal Plantarflexion (S1) 4+ Good+ Inversion 5 Normal Eversion (S1) 5 Normal Comments cues to avoid knee bend throughout and unable to stop last 3 reps PT-OP-Q Treatments Start: 11/01/24 16:34 Freq: Status: Active Protocol: Document 12/27/24 14:24 AB (Rec: 12/27/24 16:15 AB [id number]) Therapeutic Exercises Supine Exercises Modified Fahad stretch Side bilateral Reps/Minutes 60 sec Comments with AROM knee flexion, VC for LE positioning Prone Exercises cat cow Prone Exercise Name cat cow Reps/Minutes X 5 on forearms X 5 on hands Comments verbal cues bird dog Prone Exercise Name HEP Side bilateral Reps/Minutes X 9 Comments verbal cues use of dowel and Sidelying Exercises Open book Sidelying Exercise Name initiates with UE use Side bilateral Reps/Minutes 10 ea Comments 2 sec Manual Therapy Treatment Consent Patient gave verbal consent for manual Yes treatment Soft Tissue Mobilization thoracic Body Location paraspinals & rhomboids R, inter vert tissue Mobilization Type Cross-Friction,Sustained Pressure Intensity/Depth Moderate Body Position Sidelying lumbar Body Location Lumbar parspinals B Mobilization Type Sustained Pressure Intensity/Depth Moderate Body Position Sidelying hip Body Location B glutes/piriformis/ illio psoas Mobilization Type Cross-Friction,Rolling, Sustained Pressure Intensity/Depth Moderate Body Position Sidelying PT-OP-T Assessment and Plan Start: 11/01/24 16:34 Freq: Status: Active Protocol: Document 12/27/24 14:24 AB (Rec: 12/27/24 16:15 AB [id number]) Physical Therapy Assessment Goals squat Short Term Goal (STG) Pt will be able to do full DL squat w/o pain w/o cues and good form STG Duration achieved 12/12 Residential Goal (LTG) Pt will be narayan to squat down to ground and get up/down from the ground w/o inc pain or difficulty 12/12-better most of the time LTG Duration 01/22 activity Short Term Goal (STG) Pt will be able to do go up/ down stairs w/o inc knee pain 12/12-achieved mostly but occ when back feels off STG Duration 12/18 After School Coordinator Goal (LTG) Pt will be able to run hills and at least 3 miles w/o inc pain in knee or back 12/12-has not run hills, can run flat and walk hills LTG Duration 01/22/25 strength Short Term Goal (STG) Pt will be indep w/HEP STG Duration achieved ellen [place] able After School Coordinator Goal (LTG) Pt will score 5/5 BLE MMT and at least 3/5 LPM to show improved stability to allow for easier mobility. 12/12-improving LTG Duration 01/22/25 Assessment Summary Assessment No change in R knee pain post manual and exercise for hips and spine this session. Physical Therapy Plan Frequency and Duration Frequency of Treatment 2x/Week Duration of treatment (weeks) 10 Plan of Care Start Date 11/13/24 Plan of Care End Date 01/22/25 Next Visit Focus/Plan Next Note Type Treatment Note Next Visit Plan review work on spinal alignment and cont to advance core work and running specific activities. Possibly SLS with band to HEP
--- NOTE | 2025-01-16 15:03 | PT.OTN ---
Current Diagnoses Radiculopathy, lumbar region (01/16/25) Physical Therapy Treatment Note PT-OP-A Visit Information Start: 11/01/24 16:34 Freq: Status: Active Protocol: Document 01/16/25 13:05 [facility] (Rec: 01/16/25 15:02 [facility] [id number]) Out-Patient Physical Therapy Visit Information Visit Information Visit Type Progress Note Visit Note Janine Access Code: [email or web address] Visit Start Time 13:50 Visit Stop Time 14:30 Visit Number 10 Number of WAX MOLDER Visits 0 PT-OP-B Current Condition Start: 11/01/24 16:34 Freq: Status: Active Protocol: Document 11/13/24 13:29 [facility] (Rec: 11/13/24 14:36 [facility] [id number]) Current Condition History of Current Condition Onset Date summer 2023 Current Complaints back pain, R knee pain History of Current Condition Pt reports mid summer last year was trying to get back to running the trail. Going down hill, had pain in R knee. Has seen various doctors and they think it may be spine related . Also noticed, sometimes when spine is in certain positions , gets the R knee pain. Does feel back being off. Notes back ache. When it feels right , can do leg ext and when it is off, can't lift as much weight in knee. Prior to last summer, has had back aches here and there but last summer was the first time it started . Still running, mostly on treadmill without incline. Runs about 1 to 2 miles at a time. Feels it when going up/ down stairs. 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 Had also a benign growth in R lat lower leg karma they removed. hx of malrotated intestine sx 5 -6 years ago d/ t strange abdominal pain which fixed pain. has HTN and takes BP meds. Had surgery to loosen tendons on R foot in his 30s but toes on R still struggle ot be fully relaxed. Used ot run 5ks before this injury. Has been going to the gym but isn't feeling like he is progressing. Hx of L knee ACL repair. DId have hx of injury to R knee too but was told didn't need sx. Knee exercises always worked in the past though Prior Treatments and Tests Did PT last year for back pain -helped a little Treatment Goals Patient/Caregiver Goals Get back stronger so more stable, be able to run hills, stairs and be able to get up/ down from squat/ground PT-OP-C Subjective Start: 11/01/24 16:34 Freq: Status: Active Protocol: Document 01/16/25 13:05 [facility] (Rec: 01/16/25 15:02 [facility] [id number]) OP-PT Subjective Patient Comments Patient Comments pt was able to do the trail w/ o knee pain. It was a hike/jog 2.2 miles. [place] knee pain when biking with son and was showing a wheely, felt a pain in knee then. It was only during the moment of applying the force to the petal. PT-OP-D Balance Start: 11/01/24 16:34 Freq: Status: Active Protocol: Document 11/13/24 13:29 [facility] (Rec: 11/13/24 14:36 [facility] [id number]) Balance Tests Single Limb Standing Single Limb- Right >30 sec w/opp hip drop and deviation Single Limb- Left >30 sec PT-OP-G Mobility & Gait Start: 11/01/24 16:34 Freq: Status: Active Protocol: Document 11/13/24 13:29 [facility] (Rec: 11/13/24 14:36 [facility] [id number]) OP Gait Assessment Comments Gait Comments walk: opp hip drop w/RLE WB, dec push off and stance time run: opp hip drop w/RLE WB, dec push off and stance time, IR of R femur PT-OP-J Posture/Palpation/Skin Start: 11/01/24 16:34 Freq: Status: Active Protocol: Document 01/16/25 13:05 [facility] (Rec: 01/16/25 15:02 [facility] [id number]) Posture Evaluation Krzysztof Postural Classification System Krzysztof Postural Classifications Posterior/Anterior Lumbar Protective Mechanism Left AP 2 Lumbar Protective Mechanism Right AP 2 Lumbar Protective Mechanism Left PA 2 Lumbar Protective Mechanism Right PA 2 PT-OP-K Range of Motion Start: 11/01/24 16:34 Freq: Status: Active Protocol: Document 11/13/24 13:29 [facility] (Rec: 11/13/24 14:36 [facility] [id number]) Lumbar Spine Range of Motion Lumbar Spine Active Percentage Flexion 80 Extension 75 Rotation Left 70 Rotation Right 80 Lateral Flexion Left 70 Lateral Flexion Right 80 Comments no pain, just feels tight at end ranges PT-OP-L Special Tests Start: 11/01/24 16:34 Freq: Status: Active Protocol: Document 11/13/24 13:29 [facility] (Rec: 11/13/24 14:36 [facility] [id number]) Special Tests Lumbar Spine Special Tests Straight Leg Raise Test Results 59 deg R, 60 L Slump Test Results neg Other Special Tests Special Tests reflexes PT-OP-M Strength Start: 11/01/24 16:34 Freq: Status: Active Protocol: Document 01/16/25 13:05 [facility] (Rec: 01/16/25 15:02 [facility] [id number]) Hip Strength Hip Manual Muscle Testing Right Flexion (L2) 5 Normal Extension (S1) 5 Normal Abduction 5 Normal Adduction 5 Normal External Rotation 5 Normal Internal Rotation 5 Normal Left Flexion (L2) 5 Normal Extension (S1) 5 Normal Abduction 5 Normal Adduction 5 Normal External Rotation 5 Normal Internal Rotation 5 Normal Knee Strength Knee Manual Muscle Testing Right Flexion (S2) 5 Normal Extension (L3) 5 Normal Left Flexion (S2) 5 Normal Extension (L3) 5 Normal Ankle/Foot Strength Ankle and Foot Manual Muscle Testing Left Dorsiflexion (L4) 5 Normal Plantarflexion (S1) 5 Normal Inversion 5 Normal Eversion (S1) 5 Normal Comments 20 heel raises Right Dorsiflexion (L4) 5 Normal Plantarflexion (S1) 4+ Good+ Inversion 5 Normal Eversion (S1) 5 Normal Comments min cues to avoid knee bend 20 heel raises-less range than R PT-OP-Q Treatments Start: 11/01/24 16:34 Freq: Status: Active Protocol: Document 01/16/25 13:05 [facility] (Rec: 01/16/25 15:02 [facility] [id number]) Therapeutic Exercises Standing Exercises lunge Standing Exercise Name walking Side bilateral Reps/Minutes 5 min RDL Side bilateral Equipment Used 1. dowel 2. 10lb B UEs Reps/Minutes 1. 15 2. 10 Heel raise Standing Exercise Name SL Side right Other Exercises isometrics Other Exercise Name MMT and LPM Side bilateral Manual Therapy Treatment Consent Patient gave verbal consent for manual Yes treatment Soft Tissue Mobilization lumbar Body Location Lumbar parspinals and multifidi R>L Mobilization Type Sustained Pressure Intensity/Depth Moderate Body Position Sidelying Joint Mobilizations lumbar Comments distraction L5-S1 c/r w/ post dep innominate Joint R add c/r PT-OP-T Assessment and Plan Start: 11/01/24 16:34 Freq: Status: Active Protocol: Document 01/16/25 13:05 [facility] (Rec: 01/16/25 15:02 [facility] [id number]) Physical Therapy Assessment Goals squat Short Term Goal (STG) Pt will be able to do full DL squat w/o pain w/o cues and good form STG Duration achieved 12/12 Senior Living Goal (LTG) Pt will be narayan to squat down to ground and get up/down from the ground w/o inc pain or difficulty 12/12-better most of the time LTG Duration achieved 01/16 activity Short Term Goal (STG) Pt will be able to do go up/ down stairs w/o inc knee pain 12/12-achieved mostly but occ when back feels off STG Duration achieved 01/16 Senior Living Goal (LTG) Pt will be able to run hills and at least 3 miles w/o inc pain in knee or back 12/12-has not run hills, can run flat and walk hills 01/16- has been limited by time ; has done some hikes and walk runs w/o inc pain LTG Duration 02/24 strength Short Term Goal (STG) Pt will be indep w/HEP STG Duration achieved cyndiega s able Greenhouse Staff Goal (LTG) Pt will score 5/5 BLE MMT and at least 3/5 LPM to show improved stability to allow for easier mobility. 12/12-improving 01/16-improving LTG Duration 02/27 Assessment Summary Assessment Pt making progress w/PT w/less instances of pain but still pain w/bending over activities w/LB and occ w/carrying son. HE would benefit from cont PT to work on strength, ROM and dec pain Physical Therapy Plan Frequency and Duration Frequency of Treatment 1x/Week Duration of treatment (weeks) 6 Plan of Care Start Date 01/16/25 Plan of Care End Date 02/27/25 Therapeutic Interventions Therapeutic Interventions Balance Training,Gait Training ,Home Exercise Program,Joint Mobilizations,Manual Therapy, Neuromuscular Re-education, Orthotic/Prosthetic Management ,Patient/Caregiver Education, Self-Care/Home Management,Soft Tissue Mobilization,Taping, Therapeutic Activities, Therapeutic Exercises Modalities Cold Pack/Ice Massage,Electric Stimulation,Hot Packs, Infrared Therapy,Traction- Mechanical,Ultrasound Next Visit Focus/Plan Next Note Type Treatment Note Next Visit Plan review work on spinal alignment and cont to advance core work and running specific activities. Possibly SLS with band to HEP
--- NOTE | 2025-01-16 15:03 | PT.OPPOC ---
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 Going down hill, had pain in R knee. Has seen various doctors and they think it may be spine related . Also noticed, sometimes when spine is in certain positions , gets the R knee pain. Does feel back being off. Notes back ache. When it feels right , can do leg ext and when it is off, can't lift as much weight in knee. Prior to last summer, has had back aches here and there but last summer was the first time it started . Still running, mostly on treadmill without incline. Runs about 1 to 2 miles at a time. Feels it when going up/ down stairs. 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 Had also a benign growth in R lat lower leg karma they removed. hx of malrotated intestine sx 5 -6 years ago d/ t strange abdominal pain which fixed pain. has HTN and takes BP meds. Had surgery to loosen tendons on R foot in his 30s but toes on R still struggle ot be fully relaxed. Used ot run 5ks before this injury. Has been going to the gym but isn't feeling like he is progressing. Hx of L knee ACL repair. DId have hx of injury to R knee too but was told didn't need sx. Knee exercises always worked in the past though Prior Treatments and Tests Did PT last year for back pain -helped a little Treatment Goals Patient/Caregiver Goals Get back stronger so more stable, be able to run hills, stairs and be able to get up/ down from squat/ground PT-OP-T Assessment and Plan Start: 11/01/24 16:34 Freq: Status: Active Protocol: Document 01/16/25 13:05 [facility] (Rec: 01/16/25 15:02 [facility] [id number]) Physical Therapy Assessment Goals squat Short Term Goal (STG) Pt will be able to do full DL squat w/o pain w/o cues and good form STG Duration achieved 12/12 Waste[employer] Chemist Goal (LTG) Pt will be narayan to squat down to ground and get up/down from the ground w/o inc pain or difficulty 12/12-better most of the time LTG Duration achieved 01/16 activity Short Term Goal (STG) Pt will be able to do go up/ down stairs w/o inc knee pain 12/12-achieved mostly but occ when back feels off STG Duration achieved 01/16 Care Home Goal (LTG) Pt will be able to run hills and at least 3 miles w/o inc pain in knee or back 12/12-has not run hills, can run flat and walk hills 01/16- has been limited by time ; has done some hikes and walk runs w/o inc pain LTG Duration 02/24 strength Short Term Goal (STG) Pt will be indep w/HEP STG Duration achieved advaninga s able Wastewater Treatment Plant Chemist Goal (LTG) Pt will score 5/5 BLE MMT and at least 3/5 LPM to show improved stability to allow for easier mobility. 12/12-improving 01/16-improving LTG Duration 02/27 Assessment Summary Assessment Pt making progress w/PT w/less instances of pain but still pain w/bending over activities w/LB and occ w/carrying son. HE would benefit from cont PT to work on strength, ROM and dec pain Physical Therapy Plan Frequency and Duration Frequency of Treatment 1x/Week Duration of treatment (weeks) 6 Plan of Care Start Date 01/16/25 Plan of Care End Date 02/27/25 Therapeutic Interventions Therapeutic Interventions Balance Training,Gait Training ,Home Exercise Program,Joint Mobilizations,Manual Therapy, Neuromuscular Re-education, Orthotic/Prosthetic Management ,Patient/Caregiver Education, Self-Care/Home Management,Soft Tissue Mobilization,Taping, Therapeutic Activities, Therapeutic Exercises Modalities Cold Pack/Ice Massage,Electric Stimulation,Hot Packs, Infrared Therapy,Traction- Mechanical,Ultrasound Next Visit Focus/Plan Next Note Type Treatment Note Next Visit Plan review work on spinal alignment and cont to advance core work and running specific activities. Possibly SLS with band to HEP Plan of Care Dates Plan of Care Start Date 01/16/25 Plan of Care End Date 02/27/25 Electronically Signed by: Tatum Hill, PT 01/16/25 [id number] If you are in agreement with this Plan of Care, please return a signed and dated copy. I have reviewed this Plan of Care and certify that the skilled therapy services above are required to meet the patient?s needs. Physician Signature Date Printed Name and Credentials Clinical Instructor Signature Printed Name and Credentials
--- NOTE | 2025-01-23 15:18 | PT.OTN ---
Current Diagnoses Radiculopathy, lumbar region (01/23/25) Physical Therapy Treatment Note PT-OP-A Visit Information Start: 11/01/24 16:34 Freq: Status: Active Protocol: Document 01/23/25 13:49 [facility] (Rec: 01/23/25 15:18 [facility] [id number]) Out-Patient Physical Therapy Visit Information Visit Information Visit Type Treatment Note Visit Note Janine Access Code: [email or web address] Visit Start Time 13:52 Visit Stop Time 14:30 Visit Number 11 Number of HUMAN CAPITAL CONSULTANT Visits 0 PT-OP-B Current Condition Start: 11/01/24 16:34 Freq: Status: Active Protocol: Document 11/13/24 13:29 [facility] (Rec: 11/13/24 14:36 [facility] [id number]) Current Condition History of Current Condition Onset Date summer 2023 Current Complaints back pain, R knee pain History of Current Condition Pt reports mid summer last year was trying to get back to running the trail. Going down hill, had pain in R knee. Has seen various doctors and they think it may be spine related . Also noticed, sometimes when spine is in certain positions , gets the R knee pain. Does feel back being off. Notes back ache. When it feels right , can do leg ext and when it is off, can't lift as much weight in knee. Prior to last summer, has had back aches here and there but last summer was the first time it started . Still running, mostly on treadmill without incline. Runs about 1 to 2 miles at a time. Feels it when going up/ down stairs. 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 Had also a benign growth in R lat lower leg karma they removed. hx of malrotated intestine sx 5 -6 years ago d/ t strange abdominal pain which fixed pain. has HTN and takes BP meds. Had surgery to loosen tendons on R foot in his 30s but toes on R still struggle ot be fully relaxed. Used ot run 5ks before this injury. Has been going to the gym but isn't feeling like he is progressing. Hx of L knee ACL repair. DId have hx of injury to R knee too but was told didn't need sx. Knee exercises always worked in the past though Prior Treatments and Tests Did PT last year for back pain -helped a little Treatment Goals Patient/Caregiver Goals Get back stronger so more stable, be able to run hills, stairs and be able to get up/ down from squat/ground PT-OP-C Subjective Start: 11/01/24 16:34 Freq: Status: Active Protocol: Document 01/23/25 13:49 [facility] (Rec: 01/23/25 15:18 [facility] [id number]) OP-PT Subjective Patient Comments Patient Comments gym went well on tuesday. Inc weight. Doing yard work and garage work, inc back pain. Knee has been feeling good. Builds up in lower R side with inc time. PT-OP-D Balance Start: 11/01/24 16:34 Freq: Status: Active Protocol: Document 11/13/24 13:29 [facility] (Rec: 11/13/24 14:36 [id number] Balance Tests Single Limb Standing Single Limb- Right >30 sec w/opp hip drop and deviation Single Limb- Left >30 sec PT-OP-G Mobility & Gait Start: 11/01/24 16:34 Freq: Status: Active Protocol: Document 11/13/24 13:29 [facility] (Rec: 11/13/24 14:36 [facility] [id number]) OP Gait Assessment Comments Gait Comments walk: opp hip drop w/RLE WB, dec push off and stance time run: opp hip drop w/RLE WB, dec push off and stance time, IR of R femur PT-OP-J Posture/Palpation/Skin Start: 11/01/24 16:34 Freq: Status: Active Protocol: Document 01/16/25 13:05 [facility] (Rec: 01/16/25 15:02 [facility] [id number]) Posture Evaluation Krzysztof Postural Classification System Krzysztof Postural Classifications Posterior/Anterior Lumbar Protective Mechanism Left AP 2 Lumbar Protective Mechanism Right AP 2 Lumbar Protective Mechanism Left PA 2 Lumbar Protective Mechanism Right PA 2 PT-OP-K Range of Motion Start: 11/01/24 16:34 Freq: Status: Active Protocol: Document 11/13/24 13:29 [facility] (Rec: 11/13/24 14:36 [facility] [id number]) Lumbar Spine Range of Motion Lumbar Spine Active Percentage Flexion 80 Extension 75 Rotation Left 70 Rotation Right 80 Lateral Flexion Left 70 Lateral Flexion Right 80 Comments no pain, just feels tight at end ranges PT-OP-L Special Tests Start: 02/06/25 16:34 Freq: Status: Active Protocol: Document 11/13/24 13:29 [facility] (Rec: 11/13/24 14:36 [facility] [id number]) Special Tests Lumbar Spine Special Tests Straight Leg Raise Test Results 59 deg R, 60 L Slump Test Results neg Other Special Tests Special Tests reflexes PT-OP-M Strength Start: 11/01/24 16:34 Freq: Status: Active Protocol: Document 01/16/25 13:05 [facility] (Rec: 01/16/25 15:02 [facility] [id number]) Hip Strength Hip Manual Muscle Testing Right Flexion (L2) 5 Normal Extension (S1) 5 Normal Abduction 5 Normal Adduction 5 Normal External Rotation 5 Normal Internal Rotation 5 Normal Left Flexion (L2) 5 Normal Extension (S1) 5 Normal Abduction 5 Normal Adduction 5 Normal External Rotation 5 Normal Internal Rotation 5 Normal Knee Strength Knee Manual Muscle Testing Right Flexion (S2) 5 Normal Extension (L3) 5 Normal Left Flexion (S2) 5 Normal Extension (L3) 5 Normal Ankle/Foot Strength Ankle and Foot Manual Muscle Testing Left Dorsiflexion (L4) 5 Normal Plantarflexion (S1) 5 Normal Inversion 5 Normal Eversion (S1) 5 Normal Comments 20 heel raises Right Dorsiflexion (L4) 5 Normal Plantarflexion (S1) 4+ Good+ Inversion 5 Normal Eversion (S1) 5 Normal Comments min cues to avoid knee bend 20 heel raises-less range than R PT-OP-Q Treatments Start: 11/01/24 16:34 Freq: Status: Active Protocol: Document 01/23/25 13:49 [facility] (Rec: 01/23/25 15:18 [facility] [id number]) Therapeutic Exercises Standing Exercises row Standing Exercise Name bent over Side bilateral Equipment Used 10 ,25# Reps/Minutes 10 ea wt Comments cues hip hinge lunge Standing Exercise Name walking Side bilateral Reps/Minutes 20 ft RDL Standing Exercise Name 1. DL RDL 2. SL RDL 3. mod SL w/opp LE on wall Side bilateral Equipment Used 1.10lb B 2. 10 lb same hand 3. 10 lb opp side Reps/Minutes 1. 12 2 and 3. 5 ea squat Standing Exercise Name SL-worked on free standing, holding on then sit to stand to high bed Side bilateral Reps/Minutes 6 min total Manual Therapy Treatment Consent Patient gave verbal consent for manual Yes treatment Soft Tissue Mobilization lumbar Body Location Lumbar parspinals and multifidi R>L Mobilization Type Sustained Pressure Intensity/Depth Moderate Body Position Sidelying Joint Mobilizations lumbar Comments distraction L5-S1 c/r w/ post dep, L5 sup ant glide R innominate Comments R ext c/r Neuro Re-Education Treatment Other Activities PNF Reps/Duration 8 min Comments post depression sustained hold progressed to COI progressed to sustained holds and COI w/ LE pattern PT-OP-T Assessment and Plan Start: 11/01/24 16:34 Freq: Status: Active Protocol: Document 01/23/25 13:49 [facility] (Rec: 01/23/25 15:18 [facility] [id number]) Physical Therapy Assessment Goals squat Short Term Goal (STG) Pt will be able to do full DL squat w/o pain w/o cues and good form STG Duration achieved 12/12 Director Clinical Data Goal (LTG) Pt will be narayan to squat down to ground and get up/down from the ground w/o inc pain or difficulty 12/12-better most of the time LTG Duration achieved 01/16 activity Short Term Goal (STG) Pt will be able to do go up/ down stairs w/o inc knee pain 12/12-achieved mostly but occ when back feels off STG Duration achieved 01/16 Usp Goal (LTG) Pt will be able to run hills and at least 3 miles w/o inc pain in knee or back 12/12-has not run hills, can run flat and walk hills 01/16- has been limited by time ; has done some hikes and walk runs w/o inc pain LTG Duration 02/24 strength Short Term Goal (STG) Pt will be indep w/HEP STG Duration achieved advaninga s able Director Clinical Data Goal (LTG) Pt will score 5/5 BLE MMT and at least 3/5 LPM to show improved stability to allow for easier mobility. 12/12-improving 01/16-improving LTG Duration 02/27 Assessment Summary Assessment lots of cues needed for pt to avoid rounding back w/ exercises as he tends to flex vs hip hinge. Dec SL squat stability and gets knee pain d /t no hip hinge so instructed on sit to stand. Physical Therapy Plan Frequency and Duration Frequency of Treatment 1x/Week Duration of treatment (weeks) 6 Plan of Care Start Date 01/16/25 Plan of Care End Date 02/27/25 Next Visit Focus/Plan Next Note Type Treatment Note Next Visit Plan cont to work SL stability and rotational stability
--- NOTE | 2025-03-20 09:41 | PT.OPDS ---
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 (Rec: 11/13/24 14:36 [facility] [id number]) Current Condition History of Current Condition Onset Date summer 2023 Current Complaints back pain, R knee pain History of Current Pt reports mid summer last year was trying to get back Condition to running the trail. Going down hill, had pain in R knee. Has seen various doctors and they think it may be spine related. Also noticed, sometimes when spine is in certain positions, gets the R knee pain. Does feel back being off. Notes back ache. When it feels right, can do leg ext and when it is off, can't lift as much weight in knee. Prior to last summer, has had back aches here and there but last summer was the first time it started. Still running, mostly on treadmill without incline. Runs about 1 to 2 miles at a time. Feels it when going up/down stairs. 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 Had also a benign growth in R lat lower leg karma they removed. hx of malrotated intestine sx 5 -6 years ago d/t strange abdominal pain which fixed pain. has HTN and takes BP meds. Had surgery to loosen tendons on R foot in his 30s but toes on R still struggle ot be fully relaxed. Used ot run 5ks before this injury. Has been going to the gym but isn't feeling like he is progressing. Hx of L knee ACL repair . DId have hx of injury to R knee too but was told didn 't need sx. Knee exercises always worked in the past though Prior Treatments and Did PT last year for back pain-helped a little Tests Treatment Goals Patient/Caregiver Get back stronger so more stable, be able to run hills, Goals stairs and be able to get up/down from squat/ground PT-OP-C Subjective Start: 11/01/24 16:34 Freq: Status: Active Protocol: Document 01/23/25 13:49 [facility] (Rec: 01/23/25 15:18 [id number]-PT Subjective Patient Comments Patient Comments gym went well on tuesday. Inc weight. Doing yard work and garage work, inc back pain. Knee has been feeling good. Builds up in lower R side with inc time. PT-OP-D Balance Start: 11/01/24 16:34 Freq: Status: Active Protocol: Document 11/13/24 13:29 [facility] (Rec: 11/13/24 14:36 [place] [id number]) Balance Tests Single Limb Standing Single Limb- Right >30 sec w/opp hip drop and deviation Single Limb- Left >30 sec PT-OP-G Mobility & Gait Start: 11/01/24 16:34 Freq: Status: Active Protocol: Document 11/13/24 13:29 [facility] (Rec: 11/13/24 14:36 [place] [id number]) OP Gait Assessment Comments Gait Comments walk: opp hip drop w/RLE WB, dec push off and stance time run: opp hip drop w/RLE WB, dec push off and stance time, IR of R femur PT-OP-J Posture/Palpation/Skin Start: 11/01/24 16:34 Freq: Status: Active Protocol: Document 01/16/25 13:05 [facility] (Rec: 01/16/25 15:02 [id number] Posture Evaluation Krzysztof Postural Classification System Krzysztof Postural Posterior/Anterior Classifications Lumbar Protective 2 Mechanism Left AP Lumbar Protective 2 Mechanism Right AP Lumbar Protective 2 Mechanism Left PA Lumbar Protective 2 Mechanism Right PA PT-OP-K Range of Motion Start: 11/01/24 16:34 Freq: Status: Active Protocol: Document 11/13/24 13:29 [facility] (Rec: 11/13/24 14:36 [id number] Lumbar Spine Range of Motion Lumbar Spine Active Percentage Flexion 80 Extension 75 Rotation Left 70 Rotation Right 80 Lateral Flexion Left 70 Lateral Flexion 80 Right Comments no pain, just feels tight at end ranges PT-OP-L Special Tests Start: 11/01/24 16:34 Freq: Status: Active Protocol: Document 11/13/24 13:29 [facility] (Rec: 11/13/24 14:36 [facility] [id number]) Special Tests Lumbar Spine Special Tests Straight Leg Raise Test Results 59 deg R, 60 L Slump Test Results neg Other Special Tests Special Tests reflexes PT-OP-M Strength Start: 11/01/24 16:34 Freq: Status: Active Protocol: Document 01/16/25 13:05 [facility] (Rec: 01/16/25 15:02 [facility] [id number]) Hip Strength Hip Manual Muscle Testing Right Flexion (L2) 5 Normal Extension (S1) 5 Normal Abduction 5 Normal Adduction 5 Normal External Rotation 5 Normal Internal Rotation 5 Normal Left Flexion (L2) 5 Normal Extension (S1) 5 Normal Abduction 5 Normal Adduction 5 Normal External Rotation 5 Normal Internal Rotation 5 Normal Knee Strength Knee Manual Muscle Testing Right Flexion (S2) 5 Normal Extension (L3) 5 Normal Left Flexion (S2) 5 Normal Extension (L3) 5 Normal Ankle/Foot Strength Ankle and Foot Manual Muscle Testing Left Dorsiflexion (L4) 5 Normal Plantarflexion (S1) 5 Normal Inversion 5 Normal Eversion (S1) 5 Normal Comments 20 heel raises Right Dorsiflexion (L4) 5 Normal Plantarflexion (S1) 4+ Good+ Inversion 5 Normal Eversion (S1) 5 Normal Comments min cues to avoid knee bend 20 heel raises-less range than R PT-OP-T Assessment and Plan Start: 11/01/24 16:34 Freq: Status: Active Protocol: Document 03/20/25 09:39 [facility] (Rec: 03/20/25 09:41 [facility] [id number]) Physical Therapy Assessment Goals squat Short Term Goal (STG Pt will be able to do full DL squat w/o pain w/o cues ) and good form STG Duration achieved 12/12 Detention Goal (LTG) Pt will be narayan to squat down to ground and get up/down from the ground w/o inc pain or difficulty 12/12-better most of the time LTG Duration achieved 01/16 activity Short Term Goal (STG Pt will be able to do go up/down stairs w/o inc knee ) pain 12/12-achieved mostly but occ when back feels off STG Duration achieved 01/16 Bondactor Machine Operator Goal (LTG) Pt will be able to run hills and at least 3 miles w/o inc pain in knee or back 12/12-has not run hills, can run flat and walk hills 01/16- has been limited by time; has done some hikes and walk runs w/o inc pain LTG Duration 02/24 strength Short Term Goal (STG Pt will be indep w/HEP ) STG Duration achieved advaninga s able Detention Goal (LTG) Pt will score 5/5 BLE MMT and at least 3/5 LPM to show improved stability to allow for easier mobility. 12/12-improving 01/16-improving LTG Duration 02/27 Assessment Summary Assessment Pt had made progress w/PT with decreased pain overall. Pt has not been seen for about 2 months and did not schedule furher visits after last session. DC d/t no longer attending PT. Physical Therapy Plan Discharge Physical Therapy Discharge Reasons No Longer Attending PT
== END 2025-03-21 10:04 | disposition home or self-care (01) ==
LOC: PHYS 13:45
PROVIDERS: Family Provider Family Medicine; PCP Family Medicine; Referring Provider Family Medicine; Visit Provider Family Medicine
DX: M54.16 Radiculopathy, lumbar region (principal)
CPT/HCPCS: 97110; 97112; 97140; 97162; 97535